=== PATIENT | male | born 1960 | race Caucasian/White ===

== ENCOUNTER 2018-05-24 08:48 | Inpatient (IN) ==
[2018-05-24] MEDS ORDERED: NARCAN IV ONE (09:27)
[2018-05-24 09:45] LABS: BASO# 0.02 X1000 (0.0-0.2); BASO% 0.3 % (0.0-0.8); EOS# 0.31 X1000 (0.0-0.7); EOS% 4.7 % (0.0-10.0); HEMATOCRIT 35.6 % (42.0-52.0); HEMOGLOBIN 10.5 g/dL (14.0-18.0); IMM GRAN# 0.02 X1000 (0.0-0.04); IMM GRAN% 0.3 % (0.0-0.5); LYMPH# 1.91 X1000 (1.2-3.4); LYMPH% 29.2 % (20.5-51.1); MCH 30.4 PG (27-31); MCHC 29.5 g/dL (33-37); MCV 103.2 FL (81-99); MONO# 0.76 X1000 (0.11-0.59); MONO% 11.6 % (1.7-9.3); MPV 11.5 FL (7.4-10.4); NEUT# 3.51 X1000 (1.4-6.5); NEUT% 53.9 % (42.2-75.2); PLT 126 X1000 (130-400); RBC 3.45 XMIL (4.7-6.1); RDW 14.9 % (11.5-14.5); WBC 6.53 X1000 (4.8-10.8)
--- NOTE | 2018-05-24 10:05 | Diag Imaging Result Doc PS360 ---
CHEST-1 VIEW - 05/24/2018 INDICATION: AMS COMPARISON: None FINDINGS: There is mild cardiomegaly and pulmonary vascular congestion. There is a pleural-based infiltrate in the left upper lobe. There is some linear atelectasis in the right lung base but no infiltrate on the right side. No pneumothorax or significant pleural effusion. IMPRESSION: Cardiomegaly and pulmonary vascular congestion. Right upper lobe focal infiltrate, indeterminate but suspicious for pneumonia. Electronically signed by Jose David Lombardo 05/24/2018 10:02 AM
[2018-05-24 10:18] LABS: ALB/GLOB RATIO 1.5; ALBUMIN 3.8 g/dL (3.5-5.0); CALCIUM 8.7 mg/dL (8.8-10.2); CREATININE 1.4 mg/dL (0.7-1.2); POTASSIUM 5.4 mmol/L (3.5-5.1); TOTAL BILIRUBIN 0.16 mg/dL (0.20-1.00); TOTAL PROTEIN 6.4 g/dL (6.3-8.3)
[2018-05-24 10:31] LABS: ALLEN TEST YES; BE 3.6 mmoll (-3.0-3.0); BLOOD TYPE ARTERIAL; HCO3-(ACT) 27.7 mmoll (20.0-26.0); METHB 0.2 % (0.0-1.5); O2(CT) 14.8 mL/dL (15.0-23.0); PCO2(98.6) 47 mmHg (35-45); PO2(98.6) 91 mmHg (60-100); SAMPLE BLOOD; SAO2 98.6 % (95.0-100.0); THB 10.8 g/dL (11.5-17.4)
--- NOTE | 2018-05-24 10:31 | Diag Imaging Result Doc PS360 ---
EXAM: CT HEAD W/O CONTRAST INDICATION: ams TECHNIQUE: This exam was performed using automated exposure control, adjustment of mA or kV according to patient size, and/or use of iterative reconstruction technique. COMPARISON: None. FINDINGS: There is no definite acute infarct given the limited sensitivity of CT versus MRI. There is no discrete intracranial mass, mass effect, or intracranial hemorrhage. There is a trace left mastoid air cell effusion. Surrounding soft tissues and bony structures are essentially unremarkable, otherwise. IMPRESSION: No evidence of acute intracranial pathology. Electronically signed by Aristides Pop 05/24/2018 10:29 AM
[2018-05-24 10:32] LABS: MODALITY CANNULA
--- NOTE | 2018-05-24 10:43 | EKG Report ---
Test Performed on : 05/24/2018 08:59:08 AM Test Reason : CP Blood Pressure : / mmHG Vent. Rate : 053 BPM Atrial Rate : 053 BPM P-R Int : 176 ms QRS Dur : 080 ms QT Int : 404 ms P-R-T Axes : 067 072 053 degrees QTc Int : 379 ms Sinus bradycardia. Low voltage QRS Borderline ECG No previous ECGs available Unconfirmed Result
[2018-05-24] MEDS ORDERED: ATIVAN IV ONE (10:50)
[2018-05-24] MEDS ORDERED: ZITHROMAX 500 MG/NS 500 MG/250 ML IVPB IV SCH (11:00)
[2018-05-24] MEDS ORDERED: LACTULOSE PO ONE (11:29)
[2018-05-24 11:45] LABS: URINE SOURCE CATH
[2018-05-24 11:54] LABS: BILIRUBIN URINE NEGATIVE (NEGATIVE); BLOOD URINE NEGATIVE (NEGATIVE); COLOR YELLOW; GLUCOSE URINE NEGATIVE (NEGATIVE); KETONE URINE NEGATIVE (NEGATIVE); LEUKOCYTES URINE NEGATIVE (NEGATIVE); NITRITE URINE NEGATIVE (NEGATIVE); PH URINE 6.5; PROTEIN URINE TRACE mg/dL (NEGATIVE); SP GRAVITY URINE 1.009; TURBIDITY URINE CLEAR (CLEAR); UR EPITHELIAL CELLS <10 /HPF (<10); URINE BACTERIA NEGATIVE /HPF; URINE RBC <10 /HPF (<10); URINE WBC <10 /HPF (<10); UROBILINOGEN URINE NORMAL (NORMAL)
[2018-05-24] MEDS ORDERED: MILK OF MAGNESIA PO PRN (12:51)
[2018-05-24] MEDS ORDERED: HEPARIN SUBQ SCH (12:51)
[2018-05-24] MEDS ORDERED: DULCOLAX PR PRN (12:51)
--- NOTE | 2018-05-24 12:59 | HISTORY AND PHYSICAL ---
PRIMARY CARE PROVIDER: Unknown. CHIEF COMPLAINT: Per [facility] records, altered mental status. HISTORY OF PRESENT ILLNESS: Mr. Mays is a 58-year-old male who is a bilateral lower extremity amputee, vancomycin-resistant enterococci, urinary tract infection, pressure rind to the left hip with MRSA, hypertension, congestive heart failure, COPD, renal failure, bipolar, exhibitionist, sexual masochism, phantom limb pain, diabetes mellitus type 2, hyperlipidemia, obesity, GERD, nicotine dependence, anxiety, and mild cognitive impairment. He is from [facility]. He does have an indwelling Marlow to help with the pressure wound heel to his left hip. Per [facility] reports, he was brought in for altered mental status. He was given Narcan and awakened and had to be given Ativan. Patient is now alert, oriented, and calm in the room. He does not remember any events leading up to him being brought to the hospital. He is complaining of some phantom pain. However, he appears comfortable at this time. He did have a head CT that did not show any evidence of acute intracranial pathology. Chest x-ray did reveal cardiomegaly, pulmonary vascular congestion and a right upper lobe focal infiltrate suspicious for pneumonia. He does not have a white count. His lactate is normal. He did have some mild hypernatremia and hyperkalemia and a BUN of 30 and a creatinine of 1.4. We will admit him to the medical telemetry floor. We will ask Wound Care to assess his right hip and will place him on Zyvox and Levaquin as the patient has an allergy to penicillin and sulfa. We will also contact Dr. Durga Young, as well as try to obtain his old records from I believe [facility]. REVIEW OF SYSTEMS: A 14-point review of systems completely negative except for those mentioned in history of present illness. The patient denies any headache, fever, chills, nausea, vomiting, diarrhea. He does report phantom leg pain. No chest pain. No palpitations. PAST MEDICAL HISTORY: 1. Vancomycin-resistant enterococci urinary tract infection. 2. Methicillin-resistant Staphylococcus aureus pressure wound to the left hip. 3. Bilateral below-knee amputation. 4. Hypertension. 5. Congestive heart failure. 6. Chronic obstructive pulmonary disease. 7. Renal failure. 8. Bipolar disorder. 9. Exhibitionism. 10. Sexual masochism. 11. Phantom limb pain. 12. Diabetes mellitus type 2. 13. Hyperlipidemia. 14. Obesity. 15. Gastroesophageal reflux disease. 16. Nicotine dependence. 17. Anxiety. 18. Mild cognitive impairment. PAST SURGICAL HISTORY: Bilateral below-knee amputation. SOCIAL HISTORY: He is currently staying at [facility]. He is from [place]. ALLERGIES: Penicillin and sulfa. HOME MEDICATIONS: 1. Divalproex sodium 500 mg tablets, 2 tablets p.o. at bedtime. 2. Melatonin 5 mg p.o. at bedtime. 3. Quetiapine fumarate 50 mg p.o. at bedtime. 4. Simvastatin 20 mg p.o. at bedtime. 5. Tylenol 325 mg 2 tablets p.o. q.4 hours p.r.n. 6. Ativan 1 mg p.o. q.4 hours p.r.n. agitation. 7. Baclofen 10 mg 2 tablets p.o. q.6 hours. 8. Bisacodyl 1 suppository RI daily. 9. Colace 1 tab p.o. daily. 10. Ipratropium-albuterol sulfate, 1 inch inhaled q.6 hours p.r.n. 11. Gabapentin 400 mg at lunchtime. 12. Gabapentin 800 mg 1 tab p.o. t.i.d. 13. Ibuprofen 400 mg p.o. q.6 hours p.r.n. 14. Zac 1 packet p.o. b.i.d. 15. Medroxyprogesterone 10 mg p.o. daily. 16. SD acid suspension 30 mL p.o. q.4 hours p.r.n. 17. Macrodantin 100 mg p.o. b.i.d. 18. OxyContin 1 tab p.o. b.i.d. 19. Oxycodone 10 mg p.o. q.6 hours p.r.n. 20. Multivitamin 1 tab p.o. daily. 21. Isosorbide calcium 500 mg p.o. b.i.d. 22. Zinc sulfate 220 mg p.o. b.i.d. 23. Zofran 1 tab p.o. q.6 hours p.r.n. PHYSICAL EXAMINATION: VITAL SIGNS: Temperature is 98 degrees, heart rate 74, respirations 16, blood pressure 170/97, O2 is 100% on room air. GENERAL: Mr. Mays is a 58-year-old male who is lying on his right side on the stretcher in the room, in no acute distress. HEENT: Atraumatic, normocephalic. PERRL. NECK: Supple trachea midline. CARDIOVASCULAR: S1, S2 appreciated. No murmurs, gallops, rubs noted. RESPIRATORY: Lung sounds clear. Chest excursion nonlabored breathing. GASTROINTESTINAL: Soft, nontender, nondistended. Positive bowel sounds 4 quadrants. EXTREMITIES: Bilateral BKA. SKIN: He does have a wound to his right hip. : He has an indwelling Marlow catheter draining clear urine with white sediment. His Marlow is being changed at this time. NEUROLOGIC: Patient is awake, alert, oriented than x4. He does follow commands, moves all extremities. He does not remember any events of the day except he woke up in the hospital for unknown reason. DIAGNOSTIC DATA: 1. Chest x-ray: Cardiomegaly, pulmonary vascular congestion, right upper lobe focal infiltrate suspicious for pneumonia. 2. EKG: Sinus bradycardia at 53 beats per minute. 3. Head CT: No evidence of acute intracranial pathology. LABORATORY DATA: White count 6, hemoglobin and hematocrit 10 and 35, platelet count is 126,000. PH 7.40, pCO2 47, PO2 91, bicarb 27, base excess 3.6, O2 saturations 96% on 2 L nasal cannula. Sodium 146, potassium 5.4, chloride 109, BUN 38, creatinine 1.4. Blood glucose is 100. Urinalysis is negative for bacteria, negative for nitrites. ASSESSMENT AND PLAN: 1. Hospital-acquired pneumonia. Patient is from [facility]. We will treat him initially was Zyvox and Levaquin. He does have an allergy to penicillin and sulfa. We will also consult Infectious Disease. 2. Altered mental status. The patient is on various sedating medications. We will hold those at this time. He did wake up after given Narcan, and had to be given a dose of Ativan to calm him down. He now appears to be calm and appropriate. Again, we will hold his medications. 3. Mild hyperkalemia. We will give him a dose of lactulose now and recheck his potassium. 4. Very mild hyponatremia. I will continue to monitor. 5. Vancomycin-resistant enterococci urinary tract infection with indwelling Marlow. We will consult Infectious Disease. 6. Pressure wound with methicillin-resistant Staphylococcus aureus to the right hip. Again, we will consult Infectious Disease. 7. Bilateral below-knee amputation. 8. Hypertension. 9. Congestive heart failure. 10. Chronic obstructive pulmonary disease. We will continue on bronchodilators. 11. Acute kidney injury on possible chronic kidney disease. We will continue to monitor. Consult Nephrology if necessary. 12. Multiple psychiatric issues, bipolar, exhibitionism, sexual masochism. Mild cognitive impairment and anxiety. We will continue home medications when appropriate. 13. Phantom limb pain. We will continue home medications when appropriate. 14. Diabetes mellitus type 2. We will continue fingerstick blood sugar and place him on sliding scale. 15. Hyperlipidemia. 16. Gastroesophageal reflux disease. 17. Nicotine dependence. We will continue nicotine patch. 18. We will try to obtain records from [facility]. 19. Further recommendation to follow physician evaluation, laboratory data and diagnostic data. Dictated by VERITO Maynard for Michael Bueno MD cc: Michael Bueno MD Patient seen and examined by me. I agree with the assessment and plan of the IN STORE DEMONSTRATOR. Dr. Myles DUMONT
[2018-05-24] MEDS ORDERED: LEVAQUIN 250 MG/D5W 250 MG/50 ML IVPB IV SCH (14:00)
--- NOTE | 2018-05-24 14:32 | PROVIDER DOCUMENTATION ---
This chart was entered by Kayy Manrique Scribe, acting as scribe for Joni Harvey CRNP. HPI-General Adult - General Chief Complaint: Altered Mental Status Stated Complaint: ams Time Seen by Provider: 05/24/18 09:26 Source: patient, family Allergies/Adverse Reactions: Patient Allergies Allergy/AdvReac Type Severity Reaction Status Date / Time Penicillins Allergy Unknown Verified 05/24/18 09:35 Sulfa (Sulfonamide Allergy Unknown Verified 05/24/18 09:35 Antibiotics) Home Medications: Home Medication List Medication Instructions Recorded Confirmed Last Taken Type Arginine/Glutamine/Calcium Hmb 1 packet PO BID 05/24/18 05/24/18 Unknown History [Zac Packet] Ascorbate Calcium [Vitamin C] 1 tab PO BID 05/24/18 05/24/18 Unknown History Baclofen 2 tab PO Q6H 05/24/18 05/24/18 Unknown History Bisacodyl [Biscolax] 1 supp MO DAILY PRN 05/24/18 05/24/18 Unknown History Bisacodyl [Dulcolax] 1 tab PO DAILY PRN 05/24/18 05/24/18 Unknown History Budesonide/Formoterol Fumarate 2 inh INH BID 05/24/18 05/24/18 Unknown History [Symbicort 80-4.5 Mcg Inhaler] Divalproex Sodium [Divalproex 2 tab PO QHS 05/24/18 05/24/18 Unknown History Sodium ER] Docusate Sodium [Colace] 1 tab PO DAILY 05/24/18 05/24/18 Unknown History Gabapentin 1 tab PO DAILY 05/24/18 05/24/18 Unknown History Gabapentin 1 tab PO TID 05/24/18 05/24/18 Unknown History Ibuprofen 1 tab PO Q6H PRN 05/24/18 05/24/18 Unknown History Magnesium Hydroxide [Milk of 30 ml PO DAILY PRN 05/24/18 05/24/18 Unknown History Magnesia] Medroxyprogesterone Acetate 1 tab PO DAILY 05/24/18 05/24/18 Unknown History Melatonin 1 tab PO QHS 05/24/18 05/24/18 Unknown History Multivitamin with Folic Acid 1 tab PO DAILY 05/24/18 05/24/18 Unknown History [Thera Tablet] Nicotine Patch [Nicoderm Patch] 1 patch TD DAILY 05/24/18 05/24/18 Unknown History Nitrofurantoin Monohyd/M-Cryst 1 tab PO BID 05/24/18 05/24/18 Unknown History [Nitrofurantoin Kings-Mcr 100 mg] Ondansetron HCl [Zofran] 1 tab PO Q6H PRN 05/24/18 05/24/18 Unknown History Oxycodone E.r. [Oxycontin] 1 tab PO BID 05/24/18 05/24/18 Unknown History Oxycodone/APAP 10 mg/325 mg 1 tab PO Q6H PRN 05/24/18 05/24/18 Unknown History [Percocet-10] Quetiapine Fumarate 1 tab PO Q6H PRN 05/24/18 05/24/18 Unknown History Quetiapine Fumarate 1 tab PO QHS 05/24/18 05/24/18 Unknown History Simvastatin 1 tab PO QHS 05/24/18 05/24/18 Unknown History Zinc Sulfate 1 tab PO BID 05/24/18 05/24/18 Unknown History - History of Present Illness -Gen Adult Nature of Presenting Problems: 58 yom presents to the ed via ems from [facility] with AMS and lethargic. pt sx was noted this am by staff and sent to ed. per ems when aos pt had fixed and dilated pupils and could be aroused by verbal stimuli but would quickly go back to sleep. pt had BGL 98 Location of Pain/Injury: reports: none Pain Radiation: reports: no radiation Quality of Pain: reports: none Severity: reports: moderate Onset/Duration: reports: this morning Timing: reports: still present Context/Activities at Onset: reports: sleep Modifying Factors: improves with: nothing Associated Symptoms: reports: fatigue. denies: back/neck pain, chest pain, diarrhea, fever/chills, nausea, shortness of breath, vomiting Similar Symptoms Previously?: No Recently seen or treated by another doctor?: No Review of Systems - Adult - REVIEW OF SYSTEMS - ADULT ROS:: limited per condition Constitutional: denies: chills, fever Eyes: reports: no symptoms reported Ears, Nose, Mouth & Throat: reports: no symptoms reported Cardiovascular: denies: chest pain, palpitations Respiratory: denies: cough, shortness of breath, wheezing Gastrointestinal: denies: abdominal pain, diarrhea, nausea, vomiting Genitourinary: reports: no symptoms reported Musculoskeletal: denies: back pain, neck pain Integumentary: reports: no symptoms reported Neurological: reports: see HPI, other (ams). denies: dizziness/vertigo, headache/migraines, loss of balance, numbness, paresthesia, slurred speech Psychiatric: reports: no symptoms reported Endocrine: reports: no symptoms reported Hematologic/Lymphatic: reports: no symptoms reported Allergic/Immunologic: reports: no symptoms reported All Other Systems: Reviewed and Negative Past History - Adult - PAST MEDICAL HISTORY-ADULT Review of Records: reports: Old Records Reviewed, Nursing Assessment Review, Medications Reviewed, Social history reviewed & non-contributory. Major Childhood Illnesses: reports: denies history Cardiovascular: reports: CAD, CHF, HTN, hyperlipidemia Respiratory: reports: COPD Gastrointestinal: reports: denies history Genitourinary: reports: kidney disease Musculoskeletal: reports: denies history Neurological: reports: denies history Psychiatric: reports: depression Endocrine/Immune: reports: Diabetes Diabetes Type: Type 2 Other Conditions: reports: MRSA - PRIOR SURGERIES/PROCEDURES Surgical/Procedure History: reports: reviewed, not pertinent - IMMUNIZATION STATUS Childhood Immunizations: See Nurse Assessment Flu Vaccine: See Nurse Assessment - FAMILY HISTORY Family History: reviewed, not pertinent - SOCIAL HISTORY Smoking: denies Alcohol Use Frequency: never Living Situation: care facility Physical Exam-General - PHYSICAL EXAM-ADULT Initial Vital Signs Reviewed: Yes - CONSTITUTIONAL General Appearance: no apparent distress, obese, lethargic - EYES Eyes: PERRL/EOMI, other (sluggisgh) - HEAD, EARS, NOSE, MOUTH & THROAT HENMT: normocephalic/atraumatic, moist mucous membranes - NECK Neck: full range of motion, supple, normal inspection - RESPIRATORY Respiratory: chest non-tender, no pleuratic chest pain, no respiratory distress, decreased breath sounds, rhonchi, increased rate (24). negative: crackles, rales - CARDIOVASCULAR Cardiovascular: normal peripheral pulses, bradycardia (53) - GASTROINTESTINAL (ABDOMEN) Abdominal Exam: normal bowel sounds, non tender, soft - LYMPHATIC Lymphatic: no adenopathy - MUSCULOSKELETAL Back Exam: normal inspection, no CVA tenderness Extremity: other (BBKA). negative: normal gait - SKIN Integumentary: normal color, normal turgor, warm/dry - PSYCHIATRIC Psych/Mental Status: disoriented x 3 Progress - PLAN OF CARE/RESULTS Progress/Plan/Lab Results: Vital Signs - 8 hr 05/24/18 08:53 05/24/18 08:54 05/24/18 09:00 Temperature Pulse Rate 63 61 54 L Respiratory Rate 21 29 H 15 Blood Pressure 152/98 O2 Sat by Pulse Oximetry 94 L 91 L 99 05/24/18 09:09 05/24/18 09:10 05/24/18 09:20 Temperature 98 F Pulse Rate 48 L 56 L 49 L Respiratory Rate 10 L 17 12 Blood Pressure 152/98 O2 Sat by Pulse Oximetry 93 L 99 97 05/24/18 09:30 05/24/18 10:05 05/24/18 10:10 Temperature Pulse Rate 49 L 63 79 Respiratory Rate Blood Pressure O2 Sat by Pulse Oximetry 99 96 05/24/18 10:20 05/24/18 10:24 Temperature Pulse Rate 75 74 Respiratory Rate 16 Blood Pressure 170/97 O2 Sat by Pulse Oximetry 98 100 Laboratory Results - last 24 hr 05/24/18 05/24/18 05/24/18 09:03 09:07 09:07 WBC 6.53 RBC 3.45 L Hgb 10.5 L Hct 35.6 L MCV 103.2 H MCH 30.4 MCHC 29.5 L RDW Std Deviation 14.9 H Plt Count 126 L MPV 11.5 H Immature Gran % (Auto) 0.3 Neut % (Auto) 53.9 Lymph % (Auto) 29.2 Kings % (Auto) 11.6 H Eos % (Auto) 4.7 Baso % (Auto) 0.3 Immature Gran # (Auto) 0.02 Neut # (Auto) 3.51 Lymph # (Auto) 1.91 Kings # (Auto) 0.76 H Eos # (Auto) 0.31 Baso # (Auto) 0.02 Specimen Type Sample Site pH pCO2 pO2 HCO3 Base Excess Oxyhemoglobin ABG O2 Sat (Calculated) ABG O2 Saturation ABG Carboxyhemoglobin ABG Methemoglobin David Test A-a O2 Difference Total Hemoglobin Lactate Liter Flow Blood Gas Modality FiO2 % Sodium 146 H Potassium 5.4 H Chloride 109 H Carbon Dioxide 27 Anion Gap 10 BUN 38 H Creatinine 1.4 H Estimated GFR/1.73 m2 52 BUN/Creatinine Ratio 27 Glucose 100 POC Glucose 92 Calculated Osmolality 300 Calcium 8.7 L Total Bilirubin 0.16 L AST 13 ALT 8 L Alkaline Phosphatase 71 Creatine Kinase 68 Troponin T Total Protein 6.4 Albumin 3.8 Globulin 2.6 Albumin/Globulin Ratio 1.5 05/24/18 05/24/18 09:07 10:25 WBC RBC Hgb Hct MCV MCH MCHC RDW Std Deviation Plt Count MPV Immature Gran % (Auto) Neut % (Auto) Lymph % (Auto) Kings % (Auto) Eos % (Auto) Baso % (Auto) Immature Gran # (Auto) Neut # (Auto) Lymph # (Auto) Kings # (Auto) Eos # (Auto) Baso # (Auto) Specimen Type ARTERIAL Sample Site R RADIAL pH 7.40 pCO2 47 H pO2 91 HCO3 27.7 H Base Excess 3.6 H Oxyhemoglobin 97.0 ABG O2 Sat (Calculated) 14.8 L ABG O2 Saturation 98.6 ABG Carboxyhemoglobin 1.30 ABG Methemoglobin 0.2 David Test YES A-a O2 Difference 50.0 Total Hemoglobin 10.8 L Lactate 0.90 Liter Flow 2.0 Blood Gas Modality CANNULA FiO2 % 28.0 Sodium Potassium Chloride Carbon Dioxide Anion Gap BUN Creatinine Estimated GFR/1.73 m2 BUN/Creatinine Ratio Glucose POC Glucose Calculated Osmolality Calcium Total Bilirubin AST ALT Alkaline Phosphatase Creatine Kinase Troponin T 0.025 Total Protein Albumin Globulin Albumin/Globulin Ratio Orders Category Date Time Status FSBS [Finger Stick Blood Sugar (ED)] DIRECTED Care 05/24/18 09:25 Active IV Insertion ORDERED Care 05/24/18 09:25 Completed CHEST-1 VIEW [RAD] Stat Exams 05/24/18 09:[address] HEAD W/O CONTRAST [CT] Stat Exams 05/24/18 09:27 Completed Blood Gas [ABG] [RESP] Routine Lab 05/24/18 10:25 Completed CBC WITH ELECTRONIC DIFF [HEME] Stat Lab 05/24/18 09:07 Completed CK PROFILE [SP CHEM] Stat Lab 05/24/18 09:07 Completed COMPREHENSIVE METABOLIC PANEL [CHEM] Stat Lab 05/24/18 09:07 Completed TROPONIN T Stat Lab 05/24/18 09:07 Completed URINALYSIS W/POSS RFLX CULT [URINALYSIS] Stat Lab 05/24/18 09:23 Uncollected Naloxone [Narcan] Med 05/24/18 09:27 Discontinued 0.4 mg IV NOW ONE EKG [EKG] Stat Ther 05/24/18 09:25 Draft pt improved with Narcan ED, but complaining of leg pain. Given Ativan due to agitation. PNA noted on CXR, consulted Thao DRUM TESTER who agreed to admit the pt to Dr. Bueno. Result Diagrams: 05/24/18 09:07 05/24/18 09:07 - EKG 1 Time of EKG reading by physician:: 08:59 EKG Read and Signed by:: Erick Tijerina EKG Interpretation (*Must complete 3 of following elements*): Normal (bor derline) Rate: 53 Rhythm: sinus bradycardia Maxwell: normal QRS: other (low voltage qrs) MO Interval: normal ST Wave: normal - XRAY 1 XRAY: Bilateral XRAY Study: Chest Impression: See EMR Report (CHEST-1 VIEW - 05/24/2018 INDICATION: AMS COMPAR NINA: None FINDINGS: There is mild cardiomegaly and pulmonary vascular congestion. There is a pleural-based infiltrate in the left upper lobe. There is some linear atelectasis in the right lung base but no infiltrate on the right side. No pneumothorax or significant pleural effusion. IMPRESSION: Cardiomegaly and pulmonary vascular congestion. Right upper lobe focal infiltrate, indeterminate but suspicious for pneumonia. Electronically signed by Jose David Lombardo 05/24/2018 10:02 AM 05/24/18 1002 Interpreting Physician: Jose David Lombardo MD Dictated Date/Time: 05/24/18 1000 cc: Joni Harvey; Duane Pacheco MD) - CT/MRI 1 CT Study: Head Impression: See EMR Report (EXAM: CT HEAD W/O CONTRAST INDICATION: ams TECHNIQUE: This exam was performed using automated exposure control, adjustment of mA or kV according to patient size, and/or use of iterative reconstruction technique. COMPARISON: None. FINDINGS: There is no definite acute infarct given the limited sensitivity of CT versus MRI. There is no discrete intracranial mass, mass effect, or intracranial hemorrhage. There is a trace left mastoid air cell effusion. Surrounding soft tissues and bony structures are essentially unremarkable, otherwise. IMPRESSION: No evidence of acute intracranial pathology. Electronically signed by Aristides Pop 05/24/2018 10:29 AM 05/24/18 1029 Interpreting Physician: Aristides Pop MD Dictated Date/Time: 05/24/18 1026 cc: Joni Harvey; Duane Pacheco MD) - CONSULTS/PCP/HOSPITALIST Notification #1 *Consult/PCP/Hospitalist*: hospitalist Time Discussed: 10:51 Consult Disposition: Admit Departure - Departure Date of Disposition Decision: 05/24/18 Time of Disposition Decision: 10:57 DIAGNOSIS: PNA (pneumonia) Disposition: ADMITTED INPATIENT 09 Certified Medical Emergency: Emergent Condition: Stable Referrals and Follow-Ups: Duane Pacheco MD [Primary Care Provider] - - Critical Care Note This patient required my direct & personal management of CC.: No Attestation - Physician/ MARIBELL Attestation Patient care was provided by Advanced Practice Provider:: Yes Advanced Practice Provider documentation review:: The Mid-level provider documentation, treatment plan and medical decision making was reviewed by the physician who agrees with all treatment and medical decision making by the MLP. The physician spent face to face time with patient:: No Advanced Practice Provider documentation review:: Supervising physician onsite and consulted in the evaluation and care of this patient. The physician did not have a face to face encounter with the patient. This chart was documented by the indicated scribe, (Kayy Manrique Scribe) and accurately reflects the services I performed and decisions made by me, Joni Harvey CRNP, as attested by the provider's signature.
[2018-05-24] MEDS ORDERED: ZYVOX 600 MG/D5W 600 MG/300 ML IVPB IV SCH ×2 (15:00→18:00)
[2018-05-24] MEDS: SANTYL OINT TOP SCH (16:21)
[2018-05-24] MEDS: MAXIPIME 2 GM in NS 100 ML IV SCH ×2 (18:16→18:17)
[2018-05-24] MEDS ORDERED: NS 500 ML ONE (18:16)
[2018-05-24] MEDS: NORCO-10 PO PRN ×2 (18:53→22:16)
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
[2018-05-24] MEDS ORDERED: NON-FORMULARY MED (Arginine/Glutamine/Calcium Hmb [Juven Packet] 1 PACKET) PO SCH (21:00)
[2018-05-24] MEDS ORDERED: MACROBID PO SCH (21:00)
[2018-05-24] MEDS ORDERED: ZOCOR PO SCH (21:00)
[2018-05-24] MEDS: ZINC SULFATE PO SCH (22:08)
[2018-05-24] MEDS: VITAMIN C PO SCH (22:09)
[2018-05-24] MEDS: DEPAKOTE ER PO SCH (22:10)
[2018-05-24] MEDS: ZOCOR PO SCH (22:10)
[2018-05-24] MEDS: NEURONTIN PO SCH (23:29)
[2018-05-24] MEDS: SYMBICORT 80/4.5 MICROGM INHALER INH SCH (23:39)
[2018-05-25] MEDS: NORCO-10 PO PRN ×4 (02:12→13:00)
[2018-05-25] MEDS: MAXIPIME 2 GM in NS 100 ML IV SCH ×2 (04:28→17:01)
[2018-05-25] MEDS: ZYVOX PO SCH ×3 (05:34→21:26)
[2018-05-25 07:05] LABS: BASO# 0.02 X1000 (0.0-0.2); BASO% 0.3 % (0.0-0.8); EOS# 0.28 X1000 (0.0-0.7); EOS% 4.8 % (0.0-10.0); HEMATOCRIT 32.2 % (42.0-52.0); HEMOGLOBIN 9.7 g/dL (14.0-18.0); IMM GRAN# 0.03 X1000 (0.0-0.04); IMM GRAN% 0.5 % (0.0-0.5); LYMPH# 1.81 X1000 (1.2-3.4); LYMPH% 31.2 % (20.5-51.1); MCH 30.5 PG (27-31); MCHC 30.1 g/dL (33-37); MCV 101.3 FL (81-99); MONO# 0.58 X1000 (0.11-0.59); MPV 11.1 FL (7.4-10.4); NEUT# 3.09 X1000 (1.4-6.5); NEUT% 53.2 % (42.2-75.2); PLT 125 X1000 (130-400); RBC 3.18 XMIL (4.7-6.1); RDW 14.9 % (11.5-14.5); WBC 5.81 X1000 (4.8-10.8)
[2018-05-25 07:14] LABS: AGAP 10; ALB/GLOB RATIO 1.3; ALBUMIN 3.6 g/dL (3.5-5.0); ALKALINE PHOSPHATASE 62 U/L (32-122); BUN 30 mg/dL (8-22); CALCIUM 8.7 mg/dL (8.8-10.2); CHLORIDE 106 mmol/L (98-107); COSMO 291; ESTIMATED GFR > 60; GLUCOSE 103 mg/dL (70-104); GOT 13 U/L (10-34); GPT 8 U/L (10-44); POTASSIUM 4.6 mmol/L (3.5-5.1); SODIUM 143 mmol/L (136-145); TCO2 27 mmol/L (25-35); TOTAL BILIRUBIN 0.19 mg/dL (0.20-1.00); TOTAL PROTEIN 6.3 g/dL (6.3-8.3)
--- NOTE | 2018-05-25 07:49 | Diag Imaging Result Doc PS360 ---
EXAM: CHEST-PORTABLE INDICATION: Pneumonia TECHNIQUE: One view COMPARISON: 05/24/2018 FINDINGS: Pulmonary venous congestion is essentially stable. Peripheral infiltrate in the left upper lung zone is stable. There is a small nodular density in the right midlung zone that is nonspecific. It was probably present on the previous study as well but is less apparent due to overexposure. Cardiac silhouette is stable. IMPRESSION: Essentially stable chest. Electronically signed by Aristides Pop 05/25/2018 7:46 AM
[2018-05-25] MEDS: SYMBICORT 80/4.5 MICROGM INHALER INH SCH ×2 (08:06→19:25)
[2018-05-25] MEDS: PROVERA PO SCH (09:16)
[2018-05-25] MEDS: NEURONTIN PO SCH ×4 (09:17→21:00)
[2018-05-25] MEDS: SANTYL OINT TOP SCH (09:17)
[2018-05-25] MEDS: VITAMIN C PO SCH ×2 (09:17→21:25)
[2018-05-25] MEDS: NICODERM PATCH TD SCH (09:17)
[2018-05-25] MEDS: COLACE PO SCH (09:17)
[2018-05-25] MEDS: ZINC SULFATE PO SCH ×2 (09:17→21:25)
[2018-05-25] MEDS: THERA M PLUS PO SCH (09:17)
[2018-05-25 13:04] LABS: URINE SOURCE CATH
[2018-05-25 13:16] LABS: BILIRUBIN URINE NEGATIVE (NEGATIVE); BLOOD URINE NEGATIVE (NEGATIVE); COLOR YELLOW; GLUCOSE URINE NEGATIVE (NEGATIVE); KETONE URINE NEGATIVE (NEGATIVE); LEUKOCYTES URINE NEGATIVE (NEGATIVE); NITRITE URINE NEGATIVE (NEGATIVE); PROTEIN URINE TRACE mg/dL (NEGATIVE); SP GRAVITY URINE 1.012; TURBIDITY URINE CLEAR (CLEAR); UROBILINOGEN URINE NORMAL (NORMAL)
[2018-05-25 13:17] LABS: UR EPITHELIAL CELLS <10 /HPF (<10); URINE BACTERIA NEGATIVE /HPF; URINE RBC <10 /HPF (<10); URINE WBC <10 /HPF (<10)
--- NOTE | 2018-05-25 15:07 | INFECTIOUS DISEASE PROGRESS NO ---
DATE: 05/25/2018 PRESENT ILLNESS: Mr. Mays is a intermediate patient who has come in due to altered mental status, which seems to be improving. He has a left hip wound infection, which has previously grown methicillin-resistant Staph aureus, and a possible left upper lobe pneumonia. There is also a history of vancomycin-resistant Enterococcus in his urine. MEDICATIONS: He is receiving Zyvox 600 mg p.o. every 12 hours, and cefepime 2 grams IV every 12 hours. PHYSICAL EXAMINATION: Vital Signs: Temperature is 98.1 degrees, pulse rate 63, respiratory rate 20, blood pressure 157/69, O2 saturation is 100% on 2 L nasal cannula. General: This is a chronically ill-appearing, obese, middle-aged male. He is lying in bed, currently in mild distress due to complaints of pain. HEENT: Atraumatic, normocephalic. Oral mucous membranes are pink and moist. Conjunctivae are pale. Neck: Supple. Trachea is midline. Cardiovascular: Heart rate is regular. Respiratory: Lung sounds are clear to auscultation and diminished bilaterally. Abdomen: Soft, obese, and tender to the midepigastric area on palpation. Integumentary: He has previously had bvepe-nnk-iins amputations bilaterally. The wound to his left hip has erythematous tissue with some yellow drainage noted. Neurologic: He is awake, alert, and fixated on his pain at this time. He is able to move side to side with some assistance. IMAGING AND LABORATORY DATA: Today, his white count is 5.81, hemoglobin 9.7, platelet count 125,000. Creatinine is 1. Estimated GFR is greater than 60. Total bilirubin is 0.19, AST 13, ALT 8, alkaline phosphatase 62. There is a urine culture pending, and a left hip culture which has no growth on the preliminary report. Chest x-ray done this morning shows peripheral infiltrates in the left upper lung zone, which are stable. ASSESSMENT AND PLAN: Mr. Mays has a left hip infection as well as a possible pneumonia. At this point, cultures are pending. He has a methicillin-resistant staphylococcus aureus and vancomycin-resistant enterococci history. For now, we will continue his Zyvox and cefepime as ordered. These plans have been discussed with and recommended by Dr. Young. COMORBIDITIES: Comorbidities for Mr. Mays include that he is an obese, intermediate patient with history of methicillin-resistant staphylococcus aureus and vancomycin- resistant enterococci, bilateral smmou-rzv-dani amputations, congestive heart failure, chronic obstructive pulmonary disease, diabetes mellitus, gastroesophageal reflux disease, cigarette smoking, anxiety, and some cognitive impairment. Dictated by VERITO Heard for Durga Young MD This chart was documented by, VERITO Heard and accurately reflects the services performed, treatment plan and medical decisions as attested by the providers signature Durga Young MD. cc: Durga Young MD [facility]AN[facility]
--- NOTE | 2018-05-25 15:15 | PROGRESS NOTE ---
DATE: 05/25/2018 SUBJECTIVE: Patient resting in bed. OBJECTIVE: Temperature 98.1 degrees, pulse is 80, respirations 20, blood pressure 157/69, O2 is 100%. HEENT: Atraumatic, normocephalic. Cardiovascular: S1, S2. Respiratory system: Has evidence of good air entry bilaterally. Abdomen: Soft, nontender. No masses felt. Extremities: Bilateral below-knee amputation. Central nervous system: No obvious focal deficits. LABS: WBC is 5.1, hematocrit is 32.2 with a platelet count of 125,000. Sodium 143, potassium 4.6, chloride 106, bicarb 27, BUN is 30, creatinine 1.0. X-ray of the chest shows pulmonary vascular congestion with peripheral infiltrate in the left upper lung zone. There is a small nodular density in the right midlung zone which is nonspecific. ASSESSMENT AND PLAN: 1. Hospital-acquired pneumonia/vancomycin-resistant Enterococcus UTI/infected right hip wound. Antibiotic management deferred to the Infectious Disease team. 2. Altered mental status. The patient's mental status seemed to have improved. Continue to monitor his neurologic status. 3. Bilateral below-knee amputation. Aware. 4. Hypertension. Optimize blood pressure control. 5. Congestive heart failure. Stable. 6. Chronic obstructive pulmonary disease. Stable. Maintain nebulized bronchodilators as needed. 7. Acute kidney injury. Resolved. 8. Diabetes mellitus. Monitor blood sugar levels and maintain patient on sliding scale insulin. 9. Gastroesophageal reflux disease. Maintain patient on PPI. 10. Tobacco use history. Maintain patient on nicotine patch. cc: Michael Bueno MD
[2018-05-25] MEDS: PROTONIX IV SCH (15:17)
[2018-05-25] MEDS: DUONEB (A & A) INH SCH ×3 (15:21→22:59)
--- NOTE | 2018-05-25 20:12 | GENERAL SURGERY CONSULTATION ---
DATE: 05/25/2018 HISTORY OF PRESENT ILLNESS: This is a 58-year-old gentleman with multiple medical issues, including cardiac disease, pulmonary disease, psychiatric issues, bilateral lower extremity amputations. He is in a detention, has been recently admitted. He has presented with altered mental status and was found to have a wound on his left hip, most likely decubitus in nature. Unclear of the etiology. REVIEW OF SYSTEMS: Ten point negative. MEDICAL HISTORY: Multidrug resistant urinary tract infections, decubitus wound left hip, peripheral vascular disease, hypertension, congestive heart failure, COPD, bipolar disorder, exhibitionism, sexual masochism, phantom limb pain, diabetes type 2, hyperlipidemia, obesity, gastroesophageal reflux. Nicotine dependence. Anxiety and continued impairment. SURGICAL HISTORY: Bilateral below-knee amputation. SOCIAL HISTORY: History of smoking. Lives at [facility] [*]. MEDICATIONS: The medication list is extensive. I do not see any anticoagulants listed. PHYSICAL EXAMINATION: Vital Signs: Temp is 98.1, pulse 60 blood pressure 140/68, oxygen saturation is 100%. General: A chronically ill-appearing gentleman, somewhat agitated. HEENT: No scleral icterus. No cervical mass. Cardiovascular: Normal rate. Pulmonary: No increased work of breathing. Abdomen: Soft, nontender, nondistended. Integument: Warm and dry. Psychiatric: Somewhat of an agitated affect. Neurologic: No focal deficits other than generalized weakness. Musculoskeletal: Bilateral below-knee amputations. He has a left hip wound that is at least 10 cm x 10 cm, but is clean, granulating, very superficial. No necrosis. No infection. Lymphatic: No inguinal adenopathy. LABORATORY: White count is 5, hematocrit 32, platelets 125,000. Creatinine is 1.0, glucose is 103 to 104. Bilirubin, AST, ALT are normal. Urinalysis trace protein. ASSESSMENT AND PLAN: A 58-year-old gentleman with clean wound in his left hip, appears to be granulating well. We will continue local wound care and follow along. Santyl is being applied currently. We will recommend continuing this. Further medical management per the hospitalist. He will need nutritional support and offloading. cc: Jeffery Khan MD
[2018-05-25] MEDS: ZOCOR PO SCH (21:25)
[2018-05-25] MEDS: DEPAKOTE ER PO SCH (21:26)
[2018-05-26] MEDS: NORCO-10 PO PRN ×4 (00:59→17:26)
[2018-05-26] MEDS: NEURONTIN PO SCH ×5 (02:35→21:03)
[2018-05-26] MEDS: DUONEB (A & A) INH SCH ×6 (03:07→22:54)
[2018-05-26] MEDS: MAXIPIME 2 GM in NS 100 ML IV SCH ×2 (04:43→17:02)
[2018-05-26] MEDS: SYMBICORT 80/4.5 MICROGM INHALER INH SCH ×2 (07:30→19:09)
[2018-05-26] MEDS: NICODERM PATCH TD SCH (08:17)
[2018-05-26] MEDS: COLACE PO SCH (08:17)
[2018-05-26] MEDS: VITAMIN C PO SCH ×2 (08:17→21:03)
[2018-05-26] MEDS: ZYVOX PO SCH ×2 (08:18→21:03)
[2018-05-26] MEDS: THERA M PLUS PO SCH (08:18)
[2018-05-26] MEDS: ZINC SULFATE PO SCH ×2 (08:18→21:03)
[2018-05-26] MEDS: PROVERA PO SCH (08:18)
[2018-05-26] MEDS: NORVASC PO SCH (08:18)
[2018-05-26] MEDS: SANTYL OINT TOP SCH (11:13)
--- NOTE | 2018-05-26 13:38 | PROGRESS NOTE ---
DATE: 05/26/2018 SUBJECTIVE: The patient resting comfortably in bed. OBJECTIVE: Vital Signs: Temperature 98.1 degrees, pulse 81, respiratory rate 22, blood pressure is 133/95, and oxygen saturation is 100%. HEENT: Atraumatic and normocephalic. Cardiovascular: S1, S2. Respiratory: Evidence of good air entry bilaterally. Abdomen: Soft, nontender. No masses felt. Extremities: Bilateral below-knee amputation. Central nervous system: No obvious focal deficits noted. LABORATORY: Blood sugar is 138. ASSESSMENT AND PLAN: 1. Hospital-acquired pneumonia/vancomycin-resistant enterococcus UTI/infected right hip wound. Antibiotic management by the Infectious Disease team. 2. Altered mental status. Improved. I will continue to monitor patient's neurologic status. 3. Bilateral below-knee amputation. Aware. 4. Hypertension. Optimize blood pressure control. 5. Congestive heart failure. Stable. Use diuretics if needed. 6. Chronic obstructive pulmonary disease. Stable. Nebulized bronchodilators as needed. 7. Acute kidney injury. Resolved. 8. Diabetes mellitus. Continue blood sugar. Monitor as well as sliding scale insulin. 9. Gastroesophageal reflux disease. Continue proton pump inhibitor. 10. Tobacco use history. Maintain patient on nicotine patch. cc: Michael Bueno MD
[2018-05-26] MEDS: PROTONIX IV SCH (15:20)
--- NOTE | 2018-05-26 17:03 | GENERAL SURGERY PROGRESS NOTE ---
DATE: 05/26/2018 SUBJECTIVE: Dressing changes going well. No fevers. No tachycardia. OBJECTIVE: General: He is alert. Cardiovascular: Normal rate. Pulmonary: No increased work of breathing. Left hip is dressed well. LABORATORY: No new labs at this point other than a glucose of 138. ASSESSMENT AND PLAN: Left hip decubitus wound. Will continue Santyl dressing changes daily. He may ultimately benefit from a skin graft to allow him to recover from his other medical issues. cc: Jeffery Khan MD
--- NOTE | 2018-05-26 17:36 | INFECTIOUS DISEASE PROGRESS NO ---
DATE: 05/26/2018 PRESENT ILLNESS: The patient has a left hip wound which by history had grown methicillin- resistant Staphylococcus aureus. The patient also had a history of vancomycin-resistant enterococcal urinary tract infection. On the patient's chest x-ray on admission to the hospital, there is a possibility that he has a left upper lobe pneumonia. MEDICATIONS: Currently, the patient is receiving Zyvox and cefepime. PHYSICAL EXAMINATION: Vital Signs: Temperature is 98 degrees, pulse 82, respirations 22, blood pressure 133/95. General: This is a chronically ill-appearing obese middle-aged male. He is in no acute distress. Head, eyes, ears, nose, and throat: He can hear my spoken words and see near objects. He does not have any white patches on his tongue. Neck: No meningismus. Lungs: Clear to auscultation. Cardiovascular: Heart rate is regular. Abdomen: Soft and nontender. Extremities: The patient has bilateral lower yqzlz-vxg-wyay amputations. The patient has a wound on the left hip area. It is has beefy red tissue in it, and there is no surrounding erythema. Neurologic: The patient is awake. He can move his extremities. There is no tremor. LABORATORY DATA: There is no lab today. There is no radiographic study done today. The patient's hip and urine cultures are negative thus far. ASSESSMENT AND PLAN: 1. The patient has pneumonia. 2. He by history has a left hip infection and urinary tract infection. For now, I will continue with Zyvox and cefepime. PATIENT'S COMORBIDITIES: 1. Patient is obese. 2. He has peripheral vascular disease. 3. Congestive heart failure. 4. He also smokes cigarettes. 5. He also has chronic obstructive pulmonary disease. 6. Renal insufficiency. cc: Durga Young MD
[2018-05-26] MEDS: ZOCOR PO SCH (21:02)
[2018-05-26] MEDS: DEPAKOTE ER PO SCH (21:03)
[2018-05-27] MEDS: NEURONTIN PO SCH ×4 (03:43→21:01)
[2018-05-27] MEDS: MAXIPIME 2 GM in NS 100 ML IV SCH ×2 (06:46→16:54)
[2018-05-27] MEDS: THERA M PLUS PO SCH (08:27)
[2018-05-27] MEDS: PROVERA PO SCH (08:28)
[2018-05-27] MEDS: ZYVOX PO SCH ×2 (08:28→21:02)
[2018-05-27] MEDS: ZINC SULFATE PO SCH ×2 (08:28→21:02)
[2018-05-27] MEDS: NORCO-10 PO PRN ×4 (08:28→21:02)
[2018-05-27] MEDS: NORVASC PO SCH (08:29)
[2018-05-27] MEDS: NICODERM PATCH TD SCH (08:31)
[2018-05-27] MEDS: COLACE PO SCH (08:31)
[2018-05-27] MEDS: DUONEB (A & A) INH SCH ×5 (08:36→23:36)
[2018-05-27] MEDS: SYMBICORT 80/4.5 MICROGM INHALER INH SCH ×2 (08:39→19:37)
[2018-05-27] MEDS: SANTYL OINT TOP SCH (09:45)
--- NOTE | 2018-05-27 11:51 | INFECTIOUS DISEASE PROGRESS NO ---
DATE: 05/27/2018 PRESENT ILLNESS: Mr. Mays is being treated for left upper lobe pneumonia. He also has a wound on his left hip which by history has previously grown methicillin-resistant Staph aureus. He also has a history of vancomycin-resistant Enterococcus in his urine. Both urine and hip cultures have been clear on this admission. MEDICATIONS: He is receiving oral Zyvox 600 mg every 12 hours and cefepime 2 g IV every 12 hours. PHYSICAL EXAMINATION: Vital Signs: Temperature is 98.3 degrees, pulse rate 71, respiratory rate 18, blood pressure 126/75. O2 saturation is 95% on 2 L nasal cannula. General: This is a chronically ill-appearing, middle-aged male. He is lying in the bed currently in mild distress due to bilateral lower extremity phantom pain. HEENT: Atraumatic, normocephalic. Oral mucous membranes are pink and moist. Conjunctivae are pale. Neck: Supple. Trachea is midline. Cardiovascular: Heart rate is regular. Respiratory: Lung sounds are clear to auscultation. Abdomen: Soft, obese, and tender on palpation. Extremities: He has a history of bilateral below- the-knee amputations. There is a wound to his left hip with beefy red tissue that seems to be getting smaller. No surrounding erythema. Neurologic: He is awake alert, and conversing appropriately. Able to move all his extremities with some assistance. No tremors noted. LABORATORY AND X-RAY: None available today. ASSESSMENT AND PLAN: Mr. Mays has been admitted and is being treated for a left upper lobe pneumonia as seen on chest x-ray. He does have a history of vancomycin-resistant Enterococcus in his urine and methicillin-resistant Staph aureus in his hip wound. The hip wound seems to be getting a little smaller. His cultures have been negative on this admission. At this point, we will continue him on the Zyvox and cefepime as ordered and recheck a chest x-ray on Wednesday. The patient is complaining of bilateral phantom pain with burning, which he states is normal for him. These plans have been discussed with and recommended by Dr. Young. COMORBIDITIES: Comorbidities for Mr. Mays include that he is morbidly obese with peripheral vascular disease, congestive heart failure, cigarette smoking, COPD, and multiple psychiatric disorders. Dictated by VERITO Heard for Durga Young MD This chart was documented by, VERITO Heard and accurately reflects the services performed, treatment plan and medical decisions as attested by the providers signature Durga Young MD. cc: Durga Young MD
[2018-05-27] MEDS: VITAMIN C PO SCH ×2 (12:34→21:03)
[2018-05-27] MEDS: PROTONIX IV SCH (15:18)
[2018-05-27] MEDS: SODIUM CHLORIDE 0.9% INJ SCH (15:18)
--- NOTE | 2018-05-27 15:31 | PROGRESS NOTE ---
DATE: 05/27/2018 SUBJECTIVE: The patient is resting in bed. OBJECTIVE: Vital signs: Temperature 98.6 degrees, pulse 70, respirations 20, blood pressure 132/73, oxygen saturation is 98%. HEENT: Atraumatic, normocephalic. Cardiovascular: S1, S2. Respiratory system: Has evidence of good air entry bilaterally. Abdomen: Soft, nontender. No masses felt. Extremities: Has bilateral below-knee amputation. Central nervous system: No obvious focal deficit noted. LABORATORY DATA: Blood sugar is 101. ASSESSMENT AND PLAN: 1. Hospital-acquired pneumonia/vancomycin-resistant enterococcus. Urinary tract infection/infected right hip wound. Antibiotic management per the Infectious Disease team. 2. Altered mental status. Resolved. 3. Bilateral below-knee amputation. Aware. 4. Hypertension. Optimize blood pressure control. 5. Congestive heart failure. Stable. Use diuretics as needed. 6. Chronic obstructive pulmonary disease, stable. Use nebulized bronchodilators as needed. 7. Acute kidney injury. Resolved. 8. Diabetes mellitus. Continue blood sugar medications as well as sliding scale insulin. 9. Gastroesophageal reflux disease. Continue proton pump inhibitor. 10. History of bipolar disorder. Continue appropriate psych medications. cc: Michael Bueno MD
[2018-05-27] MEDS: SEROQUEL PO PRN (16:54)
[2018-05-27] MEDS: ATIVAN PO PRN (21:01)
[2018-05-27] MEDS: DEPAKOTE ER PO SCH (21:01)
[2018-05-27] MEDS: MELATONIN PO SCH (21:02)
[2018-05-27] MEDS: ZOCOR PO SCH (21:02)
[2018-05-28] MEDS: SEROQUEL PO PRN ×3 (01:49→20:22)
[2018-05-28] MEDS: NORCO-10 PO PRN ×6 (02:05→22:53)
[2018-05-28] MEDS: NEURONTIN PO SCH ×4 (02:05→20:22)
[2018-05-28] MEDS: DUONEB (A & A) INH SCH ×7 (03:15→22:52)
[2018-05-28 06:15] LABS: BASO# 0.03 X1000 (0.0-0.2); BASO% 0.6 % (0.0-0.8); EOS% 5.8 % (0.0-10.0); HEMATOCRIT 33.7 % (42.0-52.0); HEMOGLOBIN 10.3 g/dL (14.0-18.0); LYMPH# 2.05 X1000 (1.2-3.4); LYMPH% 39.7 % (20.5-51.1); MCH 30.5 PG (27-31); MCHC 30.6 g/dL (33-37); MCV 99.7 FL (81-99); MONO# 0.63 X1000 (0.11-0.59); MONO% 12.2 % (1.7-9.3); MPV 10.6 FL (7.4-10.4); NEUT# 2.16 X1000 (1.4-6.5); NEUT% 41.7 % (42.2-75.2); PLT 109 X1000 (130-400); RBC 3.38 XMIL (4.7-6.1); RDW 15.3 % (11.5-14.5); WBC 5.17 X1000 (4.8-10.8)
[2018-05-28 06:47] LABS: CALCIUM 8.6 mg/dL (8.8-10.2); CREATININE 1.4 mg/dL (0.7-1.2); POTASSIUM 4.5 mmol/L (3.5-5.1)
--- NOTE | 2018-05-28 07:41 | Diag Imaging Result Doc PS360 ---
CHEST-1 VIEW - 05/28/2018 INDICATION: pneumonia COMPARISON: 05/25/2018 FINDINGS: Stable scarring at the left lateral chest wall. No definite nodules or infiltrates visible on the right side. Heart size and pulmonary vascularity are top normal. There is some linear scarring in the right lung base. IMPRESSION: No new abnormalities. Electronically signed by Jose David Lombardo 05/28/2018 7:39 AM
[2018-05-28] MEDS ORDERED: NS 1,000 ML IV SCH (08:30)
[2018-05-28] MEDS: MAXIPIME 2 GM in NS 100 ML IV SCH ×2 (09:46→20:22)
[2018-05-28] MEDS: VITAMIN C PO SCH ×2 (09:47→20:22)
[2018-05-28] MEDS: ZYVOX PO SCH ×2 (09:47→20:22)
[2018-05-28] MEDS: THERA M PLUS PO SCH (09:47)
[2018-05-28] MEDS: ZINC SULFATE PO SCH ×2 (09:47→20:22)
[2018-05-28] MEDS: NICODERM PATCH TD SCH (09:47)
[2018-05-28] MEDS: COLACE PO SCH (09:47)
[2018-05-28] MEDS: PROVERA PO SCH (09:47)
[2018-05-28] MEDS: SANTYL OINT TOP SCH (09:58)
[2018-05-28] MEDS: SYMBICORT 80/4.5 MICROGM INHALER INH SCH ×2 (11:24→20:00)
[2018-05-28] MEDS ORDERED: NS 250 ML IV ONE (12:02)
--- NOTE | 2018-05-28 12:22 | PROGRESS NOTE ---
DATE: 05/28/2018 SUBJECTIVE: Patient has no new complaints. He seems somnolent this morning. He is falling asleep in between questions. When he awakens, he asks for pain medication. He then immediately falls back asleep. OBJECTIVE: Vital Signs: Temperature 98, pulse 59, respiratory 20, blood pressure 87/54 currently to 105/64. General: Patient is somnolent but easily arousable. HEENT: Normocephalic. Neck: Supple. Cardiovascular: Regular rate. Chest: Clear. Abdomen: Soft. Extremities: He has revfk-afi-ymcp amputation bilaterally. Neurologic: Patient is oriented, appears to have no focal changes. ASSESSMENT: 1. Hospital-acquired pneumonia. 2. Urinary tract infection. 3. Infected hip. 4. Hypotension. Currently is on Norvasc. We will hold this and add IV fluids. 5. Altered mental status by history, appears to be resolved. He appears alert and oriented. 6. Bilateral iylkt-oxb-hmuj amputation. 7. Congestive heart failure, stable. 8. Acute on chronic renal failure. 9. Chronic obstructive pulmonary disease. 10. History of bipolar. PLAN: We will continue Zyvox and cefepime. We will stop his Norvasc and IV fluids. Discussed with patient that at the current time with blood pressures 87 systolic, we certainly could not add any type of sedative or pain medication that could potentially lower his blood pressure. Unsure how much true pain Mr. Mays is in currently as he has to awakened so that he can ask for pain medication. We will continue current plan. Hopefully discharge over the next 2 or 3 days. cc: Juan Davis MD
[2018-05-28] MEDS: SODIUM CHLORIDE 0.9% INJ SCH (14:49)
[2018-05-28] MEDS: PROTONIX IV SCH (14:49)
[2018-05-28] MEDS: TYLENOL PO PRN (16:29)
[2018-05-28] MEDS: ZOCOR PO SCH (20:22)
[2018-05-28] MEDS: MELATONIN PO SCH (20:22)
[2018-05-28] MEDS: DEPAKOTE ER PO SCH (20:22)
[2018-05-28] MEDS: ATIVAN PO PRN (20:22)
[2018-05-29] MEDS: NEURONTIN PO SCH ×5 (03:04→22:50)
[2018-05-29] MEDS: NORCO-10 PO PRN ×3 (03:04→11:04)
[2018-05-29] MEDS: DUONEB (A & A) INH SCH ×6 (03:25→23:37)
[2018-05-29] MEDS: SYMBICORT 80/4.5 MICROGM INHALER INH SCH ×2 (08:02→19:44)
[2018-05-29] MEDS: COLACE PO SCH (08:31)
[2018-05-29] MEDS: VITAMIN C PO SCH ×2 (08:31→20:31)
[2018-05-29] MEDS: PROVERA PO SCH (08:31)
[2018-05-29] MEDS: NICODERM PATCH TD SCH (08:31)
[2018-05-29] MEDS: ZYVOX PO SCH ×2 (08:31→20:31)
[2018-05-29] MEDS: ZINC SULFATE PO SCH ×2 (08:31→20:31)
[2018-05-29] MEDS: ATIVAN PO PRN ×2 (08:31→20:31)
[2018-05-29] MEDS: THERA M PLUS PO SCH (08:31)
[2018-05-29] MEDS: SANTYL OINT TOP SCH (08:32)
[2018-05-29] MEDS: MAXIPIME 2 GM in NS 100 ML IV SCH ×3 (11:04→20:30)
--- NOTE | 2018-05-29 14:42 | PROGRESS NOTE ---
DATE: 05/29/2018 SUBJECTIVE: Patient is resting in bed. OBJECTIVE: Vital Signs: Temperature 97.8 degrees, pulse 56, respirations 20, blood pressure 93/55. HEENT: Atraumatic, normocephalic. Cardiovascular System: S1, S2. Respiratory System: Has evidence of good entry bilaterally. Abdomen: Soft, nontender. No masses felt. Extremities: Has bilateral below-knee amputation. Central Nervous System: No obvious focal deficits noted. Labs: Sugar is 101. ASSESSMENT AND PLAN: 1. Hospital-acquired pneumonia/vancomycin-resistant enterococcus urinary tract infection/right hip wound infection. Antibiotic management per infectious disease team. 2. Altered mental status. Resolved. 3. Bilateral below-knee amputation. Aware. 4. Hypertension. Blood pressure on the low side at about 93/55. [facility] is currently on hold. Continue to monitor the patient's blood pressure. 5. Congestive heart failure. Stable. Use diuretics as needed. 6. Chronic obstructive pulmonary disease. Stable. Use bronchodilators as needed. 7. Acute kidney injury. Resolved. 8. Diabetes mellitus. Continue blood sugar monitoring as well as sliding scale insulin. 9. Gastroesophageal reflux disease. Continue proton pump inhibitor. 10. History of bipolar disorder. Continue psychiatric medications. 11. Disposition. The patient will be going to a [facility] facility when ready for discharge. cc: Michael Bueno MD
[2018-05-29] MEDS: OXY IR PO PRN ×3 (14:54→22:47)
[2018-05-29] MEDS: PROTONIX IV SCH (14:55)
[2018-05-29] MEDS: MELATONIN PO SCH (20:31)
[2018-05-29] MEDS: SEROQUEL PO PRN (20:31)
[2018-05-29] MEDS: ZOCOR PO SCH (20:31)
[2018-05-29] MEDS: DEPAKOTE ER PO SCH (20:33)
[2018-05-30] MEDS: NEURONTIN PO SCH ×6 (02:31→23:20)
[2018-05-30] MEDS: OXY IR PO PRN ×5 (02:31→22:05)
[2018-05-30] MEDS: DUONEB (A & A) INH SCH ×6 (03:32→23:58)
[2018-05-30] MEDS: SYMBICORT 80/4.5 MICROGM INHALER INH SCH ×2 (07:24→20:21)
[2018-05-30] MEDS: NORVASC PO SCH (08:05)
[2018-05-30] MEDS: MAXIPIME 2 GM in NS 100 ML IV SCH (08:07)
[2018-05-30] MEDS: PROVERA PO SCH (08:20)
[2018-05-30] MEDS: ZINC SULFATE PO SCH ×2 (08:20→20:21)
[2018-05-30] MEDS: THERA M PLUS PO SCH (08:20)
[2018-05-30] MEDS: VITAMIN C PO SCH ×2 (08:20→20:22)
[2018-05-30] MEDS: ZYVOX PO SCH (08:21)
[2018-05-30] MEDS: NICODERM PATCH TD SCH (08:21)
[2018-05-30] MEDS: COLACE PO SCH (08:21)
[2018-05-30] MEDS ORDERED: NS 1,000 ML IV SCH (12:15)
[2018-05-30] MEDS: ATIVAN PO PRN ×2 (12:24→22:05)
--- NOTE | 2018-05-30 12:30 | PROGRESS NOTE ---
DATE: 05/30/2018 SUBJECTIVE: The patient is resting in bed. OBJECTIVE: Vital Signs: Temperature 98.6 degrees, pulse 50, respirations 19, blood pressure is 99/53, oxygen saturation is 100%. HEENT: Atraumatic and normocephalic. Cardiovascular System: S1 and S2. Respiratory System: Has evidence of good air entry bilaterally. Abdomen: Soft, nontender. No masses felt. Extremities: The patient does have bilateral below-knee amputations. Central Nervous System: No obvious focal deficit noted. Labs: None. ASSESSMENT AND PLAN: 1. Hospital-acquired pneumonia/vancomycin-resistant enterococcus urinary tract infection/right hip wound infection. Antibiotic management per the infectious disease team. 2. Altered mental status. Resolved. 3. Bilateral below-knee amputations. Aware. 4. Hypertension. Blood pressure on the low side. We will continue to hold off on the antihypertensive medications. 5. Congestive heart failure. Stable. Use diuretics as needed. 6. Chronic obstructive pulmonary disease. Stable. Use bronchodilators as needed. 7. Acute kidney injury. Maintain the patient on intravenous fluids. Follow up on renal function. 8. Diabetes mellitus. Continue blood sugar monitoring as well as sliding scale insulin. 9. Gastroesophageal reflux disease. Continue proton pump inhibitor. 10. History of bipolar disorder. Continue appropriate psychiatric medications. 11. Disposition. The patient will be discharge to a [facility] facility when considered appropriate by the infectious disease team. cc: Michael Bueno MD
[2018-05-30] MEDS: SANTYL OINT TOP SCH (14:20)
[2018-05-30] MEDS: NS 1,000 ML IV SCH (15:20)
[2018-05-30] MEDS: PROTONIX IV SCH (15:22)
--- NOTE | 2018-05-30 18:06 | INFECTIOUS DISEASE PROGRESS NO ---
DATE: 05/30/2018 PRESENT ILLNESS: The patient is being treated for pneumonia. On his latest x-ray, there is no mention of any infiltrates, and it seems that the pneumonia is clearing. The patient also has a left hip infection which is clearing, and the hip is doing quite well. The patient previously had a urinary tract infection, but the latest urine culture as well as the culture from the patient's left hip are negative. MEDICATIONS: The patient currently is on Zyvox and cefepime. PHYSICAL EXAMINATION: Vital Signs: Temperature is 98.9 degrees, pulse 67, respirations 18, blood pressure 105/66. General: This is a chronically ill-appearing, middle-aged male. He is in no acute distress. Head, Eyes, Ears, Nose, and Throat: He can hear my spoken words and see near objects. He does not have any drainage from his nose or ears. Lungs: Clear to auscultation. Cardiovascular: Heart rate is regular. Thorax: The patient has an increased AP diameter of the chest. Abdomen: Soft and nontender. Extremities: I removed the dressing from the patient's left hip and the beefy red tissue is getting smaller in size and granulation tissue is forming. I replaced the patient's dressing on his left hip. Neurologic: The patient is alert. He can move his arms and legs. There is no tremor. LAB AND X-RAY: There is no new lab today. Chest x-ray, as mentioned above, does not mention any infiltrate. ASSESSMENT AND PLAN: It looks like his pneumonia is clearing and his left hip infection is cleared and getting smaller. My plan is to send the patient home to [facility] on Doxycycline 100 mg p.o. every 12 hours and Ceftin 500 mg p.o. every 12 hours for 1 more week. The patient's further care will be taken care of by the [facility] physician who sees the patients at [facility]. COMORBIDITIES: The patient is obese. He has peripheral vascular disease. He has bilateral below- knee amputations. He is a cigarette smoker. He has COPD and multiple psychiatric disorders. cc: Durga Young MD
[2018-05-30] MEDS: CEFTIN PO SCH (18:45)
[2018-05-30] MEDS: TYLENOL PO PRN (18:45)
[2018-05-30] MEDS: MELATONIN PO SCH (20:21)
[2018-05-30] MEDS: DEPAKOTE ER PO SCH (20:22)
[2018-05-30] MEDS: ZOCOR PO SCH (20:22)
[2018-05-30] MEDS: DOXYCYCLINE PO SCH (20:22)
[2018-05-31] MEDS: TYLENOL PO PRN (00:14)
[2018-05-31] MEDS: NEURONTIN PO SCH ×5 (00:14→17:51)
[2018-05-31] MEDS: OXY IR PO PRN ×4 (03:29→18:05)
[2018-05-31] MEDS: SEROQUEL PO PRN (03:32)
[2018-05-31] MEDS: DUONEB (A & A) INH SCH ×3 (03:54→11:06)
[2018-05-31] MEDS: CEFTIN PO SCH ×2 (06:06→18:05)
[2018-05-31 06:48] LABS: BASO# 0.02 X1000 (0.0-0.2); BASO% 0.3 % (0.0-0.8); EOS# 0.93 X1000 (0.0-0.7); EOS% 13.3 % (0.0-10.0); HEMATOCRIT 33.4 % (42.0-52.0); HEMOGLOBIN 10.4 g/dL (14.0-18.0); LYMPH# 2.34 X1000 (1.2-3.4); LYMPH% 33.4 % (20.5-51.1); MCH 30.8 PG (27-31); MCHC 31.1 g/dL (33-37); MCV 98.8 FL (81-99); MONO# 0.58 X1000 (0.11-0.59); MONO% 8.3 % (1.7-9.3); MPV 11.1 FL (7.4-10.4); NEUT# 3.14 X1000 (1.4-6.5); NEUT% 44.7 % (42.2-75.2); PLT 101 X1000 (130-400); RBC 3.38 XMIL (4.7-6.1); RDW 14.9 % (11.5-14.5); WBC 7.01 X1000 (4.8-10.8)
--- NOTE | 2018-05-31 07:31 | Diag Imaging Result Doc PS360 ---
EXAM: CHEST-1 VIEW INDICATION: pneumonia TECHNIQUE: One view COMPARISON: 05/28/2018 FINDINGS: Fibrosis at the left midlung zone is stable. No new consolidation is identified. Cardiac silhouette is prominent but stable. IMPRESSION: Stable chest. Electronically signed by Aristides Pop 05/31/2018 7:29 AM
[2018-05-31 07:39] LABS: AGAP 13; BUN 34 mg/dL (8-22); CALCIUM 8.8 mg/dL (8.8-10.2); CHLORIDE 105 mmol/L (98-107); COSMO 288; CREATININE 1.1 mg/dL (0.7-1.2); ESTIMATED GFR > 60; GLUCOSE 80 mg/dL (70-104); POTASSIUM 4.6 mmol/L (3.5-5.1); SODIUM 141 mmol/L (136-145); TCO2 23 mmol/L (25-35)
[2018-05-31] MEDS: THERA M PLUS PO SCH (08:18)
[2018-05-31] MEDS: ZINC SULFATE PO SCH (08:18)
[2018-05-31] MEDS: NICODERM PATCH TD SCH (08:18)
[2018-05-31] MEDS: DOXYCYCLINE PO SCH (08:18)
[2018-05-31] MEDS: COLACE PO SCH (08:18)
[2018-05-31] MEDS: NORVASC PO SCH (08:19)
[2018-05-31] MEDS: VITAMIN C PO SCH (08:19)
[2018-05-31] MEDS: SANTYL OINT TOP SCH (08:24)
[2018-05-31] MEDS: ATIVAN PO PRN (10:00)
[2018-05-31] MEDS: PROVERA PO SCH (10:00)
[2018-05-31] MEDS: SYMBICORT 80/4.5 MICROGM INHALER INH SCH (11:07)
[2018-05-31] MEDS: NS 1,000 ML IV SCH (13:32)
--- NOTE | 2018-05-31 14:32 | DISCHARGE SUMMARY ---
ADMISSION DATE: 05/24/2018 DISCHARGE DATE: 05/31/2018 PRINCIPAL DIAGNOSIS: Hospital-acquired pneumonia. SECONDARY DIAGNOSES: 1. Vancomycin resistant Enterococcus urinary tract infection right hip wound infection. 2. Bilateral below-knee amputation. 3. Hypertension. 4. Congestive heart failure. 5. Chronic obstructive pulmonary disease. 6. Renal insufficiency. 7. Bipolar disorder. 8. Exhibitionism. 9. Sexual masochism 10. Phantom limb pain. 11. Type 2 diabetes mellitus. 12. Hyperlipidemia. 13. Obesity. 14. Gastroesophageal reflux disease. 15. Nicotine dependence. 16. Anxiety disorder. 17. Mild cognitive impairment. DISCHARGE MEDICATIONS: Include the followin. Cefuroxime 500 mg p.o. twice a day as directed. 2. Doxycycline 100 mg p.o. twice a day as directed. 3. Ascorbic acid 500 mg p.o. twice a day. 4. Baclofen 2 tabs every 6 hours. 5. Bisacodyl 1 tab daily as needed. 6. Symbicort 2 puffs twice a day. 7. Valproic acid 1000 mg 2 tabs at bedtime. 8. Neurontin 400 mg 1 tab daily. 9. Neurontin 1 tab 3 times a day. 10. Medroxyprogesterone acetate 10 mg p.o. daily. 11. Melatonin 5 mg p.o. at bedtime. 12. Multivitamin 1 p.o. daily. 13. Nicotine patch 1 daily. 14. Simvastatin 20 mg p.o. daily. 15. Zinc sulfate 220 mg p.o. twice a day. 16. Ibuprofen one every 6 hours as needed. 17. Magnesium hydroxide 30 mL daily as needed. 18. Percocet 10 every 6 hours as needed. 19. Seroquel 1 tab every 6 hours as needed. 20. Acetaminophen two tabs every 4 hours as needed. 21. Lorazepam 1 mg every 4 hours as needed. 22. Zac 1 packet twice a day. 23. Colace 1 tab daily. 24. Bisacodyl 1 suppository rectally daily p.r.n. as needed. 25. Zofran 1 tab every 6 hours as needed. 26. DuoNeb one inhalation every 6 hours as needed. CONSULTATIONS DONE DURING THIS HOSPITAL STAY: 1. Dr. Durga Young infectious disease. 2. Dr. Jeffery Khan MD General Surgery. PROCEDURES DONE DURING THIS HOSPITAL STAY: Head CT 05/24/2018. HOSPITAL COURSE: Mr. Alberto Mays is a 58-year-old male who has bilateral lower extremity amputation as well as vancomycin resistant enterococcus UTI, infected right hip wound, hypertension, CHF, COPD, renal failure and bipolar disorder, exhibitionism, sexual masochism, phantom limb pain, diabetes mellitus, hyperlipidemia, obesity, gastroesophageal reflux disease, nicotine dependence, anxiety and mild cognitive impairment. The patient is from [facility]. He does have an indwelling Marlow catheter. The patient was brought to the hospital because of altered mental status. He was given Narcan which improved his mental status. X-ray of the chest showed cardiomegaly with pulmonary vascular congestion, and also right upper lobe focal infiltrates suspicious for pneumonia. He was diagnosed as having a possible hospital acquired pneumonia, and he was managed accordingly. The patient was seen by the Infectious Disease team and did manage his antibiotics while in the hospital. Mental status did improve during the hospitalization. Prior to discharge, he was transitioned from IV antibiotics to oral antibiotics. At this time, the patient has done well. He is stable and will be discharged back to rehab facility where will continue to recuperate. Diet to be 1800 ADA. Activity will be as tolerated. He needs PT and OT evaluation. He is expected to get discharge medications as noted above. Follow-up includes the following Dr. Duane Pacheco, primary care physician, Dr. Durga Young, Infectious Disease as well as Dr. Ismael Khan General Surgery who saw him for the right hip wound. cc: Michael Bueno MD
[2018-05-31 16:40] VITALS: BP 110/70
[2018-05-31] MEDS: PROTONIX IV SCH (17:47)
== END 2018-05-31 18:56 | DRG 698 ==
LOC: SUPCPDRO → ED 08:48 → EDIPHOLD 12:16 → SUATTDRO 12:16 → 3N 13:39
PROVIDERS: ATTEND Internal Medicine
CPT/HCPCS: 51702; 70450; 71010; 71045; 80048; 80053; 81001; 82550; 82805; 82948; 84132; 84484; 85025; 87070; 87088; 93005; 94640; 94761; 94799; 96365; 96375; 99285; A9270; C9113; J0456; J0692; J1956; J2020; J2060; J2310; J7040; S0164; XXXXX

== ENCOUNTER 2018-06-23 13:41 | Inpatient (IN) ==
--- NOTE | 2018-06-23 15:33 | EKG Report ---
Test Performed on : 06/23/2018 3:23:38 PM Test Reason : CP Blood Pressure : / mmHG Vent. Rate : 053 BPM Atrial Rate : 053 BPM P-R Int : 164 ms QRS Dur : 080 ms QT Int : 416 ms P-R-T Axes : 060 061 033 degrees QTc Int : 390 ms Sinus bradycardia. Otherwise normal ECG When compared with ECG of 24-MAY-2018 08:59, (Unconfirmed) No significant change was found Unconfirmed Result
[2018-06-23] MEDS ORDERED: NS 1,000 ML IV ONE ×2 (15:35→19:23)
[2018-06-23 15:50] LABS: BASO# 0.02 X1000 (0.0-0.2); BASO% 0.2 % (0.0-0.8); EOS# 0.33 X1000 (0.0-0.7); EOS% 3.3 % (0.0-10.0); HEMATOCRIT 35.4 % (42.0-52.0); HEMOGLOBIN 10.8 g/dL (14.0-18.0); IMM GRAN# 0.02 X1000 (0.0-0.04); IMM GRAN% 0.2 % (0.0-0.5); LYMPH# 1.75 X1000 (1.2-3.4); LYMPH% 17.7 % (20.5-51.1); MCH 30.8 PG (27-31); MCHC 30.5 g/dL (33-37); MCV 100.9 FL (81-99); MONO# 0.68 X1000 (0.11-0.59); MONO% 6.9 % (1.7-9.3); MPV 11.7 FL (7.4-10.4); NEUT# 7.11 X1000 (1.4-6.5); NEUT% 71.7 % (42.2-75.2); PLT 99 X1000 (130-400); RBC 3.51 XMIL (4.7-6.1); RDW 15.1 % (11.5-14.5); WBC 9.91 X1000 (4.8-10.8)
[2018-06-23 16:23] LABS: AGAP 10; ALB/GLOB RATIO 1.7; ALBUMIN 3.8 g/dL (3.5-5.0); ALKALINE PHOSPHATASE 67 U/L (32-122); BUN 28 mg/dL (8-22); CALCIUM 8.5 mg/dL (8.8-10.2); CHLORIDE 108 mmol/L (98-107); COSMO 299; CREATININE 1.1 mg/dL (0.7-1.2); ESTIMATED GFR > 60; GLUCOSE 80 mg/dL (70-104); GOT 14 U/L (10-34); GPT 10 U/L (10-44); POTASSIUM 5.1 mmol/L (3.5-5.1); SODIUM 148 mmol/L (136-145); TCO2 30 mmol/L (25-35); TOTAL BILIRUBIN 0.36 mg/dL (0.20-1.00); TOTAL PROTEIN 6.1 g/dL (6.3-8.3)
[2018-06-23] MEDS ORDERED: TORADOL IV ONE (16:37)
[2018-06-24] MEDS ORDERED: PERCOCET-10 PO ONE (01:19)
[2018-06-24 03:00] LABS: UR AMPHETAMINES QUAL NONE DETECTED (NONE DETECT); UR BARBITUATES QUAL NONE DETECTED (NONE DETECT); UR BENZODIAZEPIN QUAL NONE DETECTED (NONE DETECT); UR CANNABINOIDS QUAL NONE DETECTED (NONE DETECT); UR COCAINE QUAL NONE DETECTED (NONE DETECT); UR METHADONE QUAL NONE DETECTED (NONE DETECT); UR OPIATES QUAL NONE DETECTED (NONE DETECT); UR OXYCODONE QUAL PRESUMPTIVE POSITIVE (NONE DETECT); UR PCP QUAL NONE DETECTED (NONE DETECT)
[2018-06-24] MEDS ORDERED: PERCOCET-5 ONE ×2 (08:12→17:10)
[2018-06-24] MEDS ORDERED: PERCOCET-5 PO ONE ×2 (08:15→17:08)
[2018-06-24] MEDS ORDERED: NEURONTIN PO ONE ×2 (08:16→18:16)
[2018-06-24] MEDS ORDERED: LIORESAL PO ONE ×2 (08:16→18:16)
--- NOTE | 2018-06-24 10:03 | Diag Imaging Result Doc PS360 ---
EXAM: CHEST-PORTABLE 06/23/2018 HISTORY: AMS TECHNIQUE: AP portable at 0642 COMMENT: There is volume loss in the left hemithorax which was also the case on 05/31/2018. The inspiration is actually slightly less optimal on the current study. There are fibrotic appearing opacities in the left upper lobe. Overall there has been no significant change in the appearance of the chest. 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 Electronically signed by Edwin Zaman 06/24/2018 10:01 AM
[2018-06-25] MEDS ORDERED: PERCOCET-5 PO ONE ×2 (05:13→16:41)
[2018-06-25] MEDS ORDERED: NEURONTIN PO ONE ×3 (06:04→13:27)
[2018-06-25] MEDS ORDERED: LIORESAL PO ONE (06:17)
[2018-06-25] MEDS ORDERED: PERCOCET-10 PO ONE (09:56)
[2018-06-25] MEDS ORDERED: CYMBALTA PO ONE (13:27)
[2018-06-25] MEDS ORDERED: DEPAKOTE PO ONE (13:27)
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
[2018-06-25] MEDS ORDERED: ZOFRAN PO PRN (20:55)
[2018-06-25] MEDS ORDERED: PERCOCET-5 PO PRN (20:56)
[2018-06-25] MEDS: DEPAKOTE PO SCH (21:09)
[2018-06-25] MEDS: CYMBALTA PO SCH (21:10)
[2018-06-25] MEDS: NEURONTIN PO SCH (21:10)
[2018-06-25] MEDS: ZOCOR PO SCH (21:40)
[2018-06-25] MEDS: MELATONIN PO PRN (21:45)
--- NOTE | 2018-06-26 00:24 | PROVIDER DOCUMENTATION ---
This chart was entered by Geneva Quezada Scribe, acting as scribe for Sandeep Vergara MD. HPI-General Adult <Errol PerezRadha - Last Filed: 06/25/18 09:59> - General Source: patient - History of Present Illness -Gen Adult Nature of Presenting Problems: Patient is a 58 year old male who presents to the ED via EMS for low blood pressure. EMS reports patient was being transported to [facility] for psych care and while en route his systolic blood pressure dropped to 70S . EMS reports patient received pain medication prior to transport which knock him out. Location of Pain/Injury: reports: none Pain Radiation: reports: no radiation Quality of Pain: reports: none Severity: reports: mild Onset/Duration: reports: other (prior to arrival) Timing: reports: still present Context/Activities at Onset: reports: light activity Modifying Factors: improves with: nothing Associated Symptoms: reports: denies symptoms Similar Symptoms Previously?: No Recently seen or treated by another doctor?: Yes <Sandeep Gongora - Last Filed: 06/26/18 00:23> - General Chief Complaint: B/P Problems Stated Complaint: hypotensive Time Seen by Provider: 06/23/18 13:59 Allergies/Adverse Reactions: Patient Allergies Allergy/AdvReac Type Severity Reaction Status Date / Time Penicillins Allergy Unknown Verified 05/24/18 09:35 Sulfa (Sulfonamide Allergy Unknown Verified 05/24/18 09:35 Antibiotics) Home Medications: Home Medication List Medication Instructions Recorded Confirmed Last Taken Type Acetaminophen 2 tab PO Q4H PRN 05/24/18 06/25/18 Unknown History Albuterol 2.5MG/Ipratrop 0.5MG 1 inh INH Q6H PRN 05/24/18 06/25/18 Unknown History [Duoneb (A & A)] Baclofen 20 mg PO 4XDAY 05/24/18 06/25/18 Unknown History Bisacodyl [Biscolax] 1 supp MO DAILY PRN 05/24/18 06/25/18 Unknown History Divalproex Sodium [Divalproex 1,000 mg PO QHS 05/24/18 06/25/18 Unknown History Sodium ER] Docusate Sodium [Colace] 1 tab PO DAILY 05/24/18 06/25/18 Unknown History Gabapentin 1 tab PO TID 05/24/18 06/25/18 Unknown History Gabapentin 1 tab PO WLUNCH 05/24/18 06/25/18 Unknown History Ibuprofen 1 tab PO Q6H PRN 05/24/18 06/25/18 Unknown History Lorazepam [Ativan] 0.5 mg PO Q4H PRN 05/24/18 06/25/18 Unknown History Mag Hydrox/Al Hydrox/Simeth [Mi 30 ml PO Q4H PRN 05/24/18 06/25/18 Unknown History Acid Suspension] Magnesium Hydroxide [Milk of 30 ml PO DAILY PRN 05/24/18 06/25/18 Unknown History Magnesia] Medroxyprogesterone Acetate 1 tab PO DAILY 05/24/18 06/25/18 Unknown History Melatonin 1 tab PO QHS 05/24/18 06/25/18 Unknown History Ondansetron HCl [Zofran] 1 tab PO Q6H PRN 05/24/18 06/25/18 Unknown History Quetiapine Fumarate 1 tab PO Q6H PRN 05/24/18 06/25/18 Unknown History Simvastatin 1 tab PO QHS 05/24/18 06/25/18 Unknown History Zinc Sulfate 1 tab PO BID 05/24/18 06/25/18 Unknown History Arginine/Glutamine/Calcium Hmb 1 packet BID 06/25/18 06/25/18 Unknown History [Zac Packet] Ascorbic Acid [Vitamin C] 500 mg PO BID 06/25/18 06/25/18 Unknown History Budesonide/Formoterol Fumarate 2 puff INHALATION BID 06/25/18 06/25/18 Unknown History [Symbicort 80-4.5 Mcg Inhaler] Cyanocobalamin (Vitamin B-12) 1,000 mcg PO BID 06/25/18 06/25/18 Unknown History [Vitamin B12] Divalproex [Depakote] 250 mg PO QAM 06/25/18 06/25/18 Unknown History Duloxetine HCl 20 mg PO QHS 06/25/18 06/25/18 Unknown History Ipratropium/Albuterol Sulfate 1 vial INHALATION Q6H 06/25/18 06/25/18 Unknown History [Iprat-Albut 0.5-3(2.5) mg/3 ml] Miconazole Nitrate [Wilmar 1 applicatn TOP BID 06/25/18 06/25/18 Unknown History Antifungal] Multivitamin with Folic Acid 1 tab PO DAILY 06/25/18 06/25/18 Unknown History [Thera Tablet] Oxycodone/APAP 5 mg/325 mg 1 tab PO Q4H PRN 06/25/18 06/25/18 Unknown History [Percocet-5] Protein Hydrolysate,Milk [Liquid 30 ml PO BID 06/25/18 06/25/18 Unknown History Protein Fortifier] Review of Systems - Adult - REVIEW OF SYSTEMS - ADULT Constitutional: reports: no symptoms reported. denies: chills, fever, fatique Eyes: reports: no symptoms reported Ears, Nose, Mouth & Throat: reports: no symptoms reported Cardiovascular: reports: no symptoms reported. denies: chest pain, heart murmur, irregular heart rate Respiratory: reports: no symptoms reported Gastrointestinal: reports: no symptoms reported. denies: diarrhea, nausea, vomiting Genitourinary: reports: no symptoms reported Musculoskeletal: reports: no symptoms reported Integumentary: reports: no symptoms reported Neurological: reports: no symptoms reported Psychiatric: reports: no symptoms reported Endocrine: reports: no symptoms reported Hematologic/Lymphatic: reports: no symptoms reported Allergic/Immunologic: reports: no symptoms reported All Other Systems: Reviewed and Negative <Sandeep Gongora - Last Filed: 06/26/18 00:23> Past History - Adult - PAST MEDICAL HISTORY-ADULT Review of Records: reports: Nursing Assessment Review, Medications Reviewed, Social history reviewed & non-contributory. Major Childhood Illnesses: reports: denies history Cardiovascular: reports: CAD, CHF, HTN, hyperlipidemia Respiratory: reports: COPD Gastrointestinal: reports: denies history Obstetrical/Gynecological: reports: denies history Genitourinary: reports: kidney disease Musculoskeletal: reports: denies history Neurological: reports: denies history Psychiatric: reports: depression Endocrine/Immune: reports: Diabetes Other Conditions: reports: MRSA - PRIOR SURGERIES/PROCEDURES Surgical/Procedure History: reports: reviewed, not pertinent - IMMUNIZATION STATUS Childhood Immunizations: See Nurse Assessment Flu Vaccine: See Nurse Assessment - FAMILY HISTORY Family History: reviewed, not pertinent - SOCIAL HISTORY Smoking: cigarettes (former) Substance Use: denies Living Situation: family <Sandeep Gongora - Last Filed: 06/26/18 00:23> Physical Exam-General - PHYSICAL EXAM-ADULT Initial Vital Signs Reviewed: Yes - CONSTITUTIONAL General Appearance: alert, no apparent distress, other (drowsy, upon wake up become agitated, cursing and refuse to answer questions.). negative: lethargic, slow to respond - RESPIRATORY Respiratory: chest non-tender, lungs clear, normal breath sounds. negative: crackles, rhonchi - CARDIOVASCULAR Cardiovascular: normal peripheral pulses, regular rate, rhythm. negative: tachycardia, systolic murmur - GASTROINTESTINAL (ABDOMEN) Abdominal Exam: normal bowel sounds, non tender, soft. negative: guarding, rebound - MUSCULOSKELETAL Extremity: non-tender, other (bilateral BKA). negative: deformity, erythema, swelling - SKIN Integumentary: normal color, normal turgor, warm/dry. negative: cyanosis, ecchymosis, jaundice - PSYCHIATRIC Psych/Mental Status: oriented x 3, other (drowsy). negative: paranoid, tearful <Sandeep Gongora - Last Filed: 06/26/18 00:23> Progress - PLAN OF CARE/RESULTS Progress/Plan/Lab Results: Vital Signs - 8 hr 06/25/18 05:10 06/25/18 05:13 06/25/18 05:31 Pulse Rate 82 54 L Respiratory Rate 21 15 Blood Pressure 151/99 153/99 O2 Sat by Pulse Oximetry 98 98 100 06/25/18 06:01 Pulse Rate Respiratory Rate Blood Pressure 148/89 O2 Sat by Pulse Oximetry 99 Orders Category Date Time Status Regular Diet Diet 06/23/18 15:21 Completed Regular Diet Diet 06/25/18 06:27 Active cxr [CHEST-PORTABLE] [RAD] Stat Exams 06/23/18 14:15 Completed ALCOHOL BLOOD Stat Lab 06/24/18 01:37 Completed CBC WITH ELECTRONIC DIFF [HEME] Stat Lab 06/23/18 15:15 Completed CMP [COMPREHENSIVE METABOLIC PANEL] [CHEM] Stat Lab 06/23/18 15:15 Completed TROPONIN T Stat Lab 06/23/18 15:15 Completed URINE DRUG SCREEN Stat Lab 06/24/18 02:32 Completed 0.9% Sodium Chloride Inj [Ns] 1,000 ml Med 06/23/18 15:35 Discontinued IV 999 mls/hr 0.9% Sodium Chloride Inj [Ns] 1,000 ml Med 06/23/18 19:23 Discontinued IV 999 mls/hr Baclofen [Lioresal] Med 06/24/18 08:16 Discontinued 20 mg PO NOW ONE Baclofen [Lioresal] Med 06/24/18 18:16 Discontinued 20 mg PO NOW ONE Baclofen [Lioresal] Med 06/25/18 06:17 Discontinued 20 mg PO NOW ONE Gabapentin [Neurontin] Med 06/24/18 08:16 Discontinued 800 mg PO NOW ONE Gabapentin [Neurontin] Med 06/24/18 18:16 Discontinued 800 mg PO NOW ONE Gabapentin [Neurontin] Med 06/25/18 06:04 Discontinued 800 mg PO NOW ONE Ketorolac [Toradol] Med 06/23/18 16:37 Discontinued 15 mg IV NOW ONE Oxycodone/APAP 10 mg/325 mg [Percocet-10] Med 06/24/18 01:19 Discontinued 1 each PO NOW ONE Oxycodone/APAP 5 mg/325 mg [Percocet-5] Med 06/24/18 08:12 Discontinued 1 each .ROUTE .STK-MED ONE Oxycodone/APAP 5 mg/325 mg [Percocet-5] Med 06/24/18 17:10 Discontinued 1 each .ROUTE .STK-MED ONE Oxycodone/APAP 5 mg/325 mg [Percocet-5] Med 06/24/18 08:15 Discontinued 1 each PO NOW ONE Oxycodone/APAP 5 mg/325 mg [Percocet-5] Med 06/24/18 17:08 Discontinued 1 each PO NOW ONE Oxycodone/APAP 5 mg/325 mg [Percocet-5] Med 06/25/18 05:13 Discontinued 1 each PO NOW ONE EKG [EKG] Stat Ther 06/23/18 14:14 Draft Result Diagrams: 06/23/18 15:15 06/23/18 15:15 - REASSESSMENT Reassessment #1 Time Reassessed: 07:02 Status: unchanged Reassessment #3 Time Reassessed: 09:55 (Patient has been screened and is not appropriate for inpatient care. He denies suicidal thoughts and states he was joking with the nurses at the assisted.) Status: improving <Errol Perez - Last Filed: 06/25/18 09:59> - PLAN OF CARE/RESULTS Progress/Plan/Lab Results: Vital Signs - 8 hr 06/23/18 13:53 Temperature 98.4 F Pulse Rate 59 L Respiratory Rate 18 Blood Pressure 126/81 O2 Sat by Pulse Oximetry 94 L Patient is angry, anxious and cursing. Nurse had difficulties with him. I think Patient BP drop down and get drowsy from medications given in the assisted to calm him down during the transport. I reassess patient multiple times during ER stay. Psych facility in [place] cancelled his bed, I called the facility but no physician integration consultant and administration can do nothing for today. Nurse called the assisted he came from and patient doesn't have his bed anymore. case discussed with Dr. Bronson and plan is to have psychiatric screen. patient has behavioral problems, denies SI/HI. Result Diagrams: 06/23/18 15:15 06/23/18 15:15 - EKG 1 Time of EKG reading by physician:: 15:33 EKG Read and Signed by:: Sandeep Gongora EKG Interpretation (*Must complete 3 of following elements*): Abnormal Rate: 53 Rhythm: sinus bradycardia MO Interval: normal Comments: otherwise normal ECG - CHANGE OF SHIFT REPORT (ED Provider) 1 Report Given and Care Transferred to:: Dr. Bronson Time of Transfer: 02:47 Items Pending: Other (waiting for psych screen Hx, PE and patient care disc ussed) <Sandeep Gongora - Last Filed: 06/26/18 00:23> Departure - Departure Date of Disposition Decision: 06/25/18 Time of Disposition Decision: 09:59 Certified Medical Emergency: Emergent - Critical Care Note This patient required my direct & personal management of CC.: No <Errol Perez - Last Filed: 06/25/18 09:59> <Sandeep Gongora - Last Filed: 06/26/18 00:23> - Departure DIAGNOSIS: Decubital ulcer, Depression, Behavioral disorder Disposition: HOME 01 Condition: Stable Attestation - Physician/ MARIBELL Attestation Patient care was provided by Advanced Practice Provider:: No The physician spent face to face time with patient:: Yes Advanced Practice Provider documentation review:: Supervising physician onsite and consulted in the evaluation and care of this patient. The physician did have a face to face encounter with the patient. <Sandeep Gongora - Last Filed: 06/26/18 00:23> This chart was documented by the indicated scribe, (Geneva Quezada Scribe) and accurately reflects the services I performed and decisions made by , Sandeep Vergara MD, as attested by the provider's signature.
[2018-06-26] MEDS ORDERED: DUONEB (A & A) INH PRN (01:24)
[2018-06-26] MEDS ORDERED: MOTRIN PO PRN (01:35)
[2018-06-26] MEDS ORDERED: SEROQUEL PO PRN (01:46)
[2018-06-26] MEDS: PERCOCET-5 PO PRN ×5 (02:44→22:40)
[2018-06-26] MEDS: COMBIVENT RESPIMAT INHALER INH SCH ×2 (04:20→10:00)
[2018-06-26] MEDS: ATIVAN PO PRN ×3 (07:35→20:39)
[2018-06-26] MEDS: COLACE PO SCH ×2 (07:35→08:06)
[2018-06-26] MEDS: LIORESAL PO SCH ×5 (07:35→20:37)
[2018-06-26] MEDS: THERA M PLUS PO SCH ×2 (07:35→08:07)
[2018-06-26] MEDS: VITAMIN B-12 PO SCH ×3 (07:35→20:39)
[2018-06-26] MEDS: DEPAKOTE PO SCH ×3 (07:36→20:38)
[2018-06-26] MEDS: NEURONTIN PO SCH ×5 (07:36→20:38)
[2018-06-26] MEDS: VITAMIN C PO SCH ×3 (07:36→20:38)
[2018-06-26] MEDS: PROVERA PO SCH ×2 (07:36→08:06)
[2018-06-26] MEDS: ZINC SULFATE PO SCH ×3 (07:36→20:38)
[2018-06-26 07:59] LABS: AGAP 9; ALB/GLOB RATIO 1.3; ALBUMIN 3.7 g/dL (3.5-5.0); ALKALINE PHOSPHATASE 62 U/L (32-122); BUN 22 mg/dL (8-22); CALCIUM 8.8 mg/dL (8.8-10.2); CHLORIDE 108 mmol/L (98-107); COSMO 291; ESTIMATED GFR > 60; GLUCOSE 111 mg/dL (70-104); GOT 14 U/L (10-34); GPT 10 U/L (10-44); MAGNESIUM 2.2 mg/dL (1.5-2.7); POTASSIUM 4.6 mmol/L (3.5-5.1); SODIUM 144 mmol/L (136-145); TCO2 27 mmol/L (25-35); TOTAL BILIRUBIN 0.28 mg/dL (0.20-1.00); TOTAL PROTEIN 6.6 g/dL (6.3-8.3)
--- NOTE | 2018-06-26 13:02 | PROGRESS NOTE ---
DATE: 06/26/2018 SUBJECTIVE: Mr. Mays is awake. He is complaining of some neuropathic type pain in his leg, but he is breathing comfortably. OBJECTIVE: Vitals: Remains afebrile, temperature 98.7 degrees, pulse 70, respirations 18, blood pressure 152/92. Eyes: Pupils are equal. Neck: No distended neck veins. Lungs: Clear in all lung fragoso. Cardiovascular: Regular rhythm and rate without murmur or S3. Extremities: He has bilateral [id number] amputation. LABORATORY: Reviewed from yesterday. Sodium 144, potassium 4.6, chloride 108, BUN 22, creatinine 1. Liver functions unremarkable. TSH 2.49. 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 ASSESSMENT AND PLAN: 1. Mainly social admission. He has no place to go. I do not see any active bacterial infection. There was some concern about low blood pressures. His blood pressures seem to be stable. 2. I do think we can watch his medications to see if we need to make some changes based on how his blood pressures are doing. He is on Depakote 1000 mg at bedtime, Zocor 40 mg at bedtime, ascorbic acid 500 mg b.i.d., budesonide formoterol 2 puffs b.i.d., vitamin B12 1000 mcg b.i.d., Depakote he also takes 250 mg p.o. q.a.m., Colace 100 mg a day, Cymbalta 20 mg at bedtime, Neurontin 800 mg, which I think he takes t.i.d., Motrin as needed. He is on ipratropium-albuterol inhaler q.6, melatonin 5 mg p.o. at bedtime p.r.n., oxycodone 5 mg 1 q.4 hours p.r.n., zinc sulfate 220 mg b.i.d., Seroquel 550 mg p.o. p.r.n., oxycodone 5 mg as needed. So we will continue his current medications. cc: David Barnhart MD
[2018-06-26] MEDS: SYMBICORT 80/4.5 MICROGM INHALER INH SCH ×2 (16:09→22:10)
[2018-06-26] MEDS: DUONEB (A & A) INH SCH ×2 (16:10→22:10)
[2018-06-26] MEDS: CYMBALTA PO SCH (20:37)
[2018-06-26] MEDS: ZOCOR PO SCH (20:38)
[2018-06-26] MEDS: MELATONIN PO PRN (20:39)
[2018-06-27] MEDS: DUONEB (A & A) INH SCH ×4 (04:00→21:35)
[2018-06-27] MEDS: PERCOCET-5 PO PRN ×4 (09:10→23:57)
[2018-06-27] MEDS: VITAMIN C PO SCH ×2 (09:11→20:20)
[2018-06-27] MEDS: THERA M PLUS PO SCH (09:11)
[2018-06-27] MEDS: DEPAKOTE PO SCH ×2 (09:11→20:20)
[2018-06-27] MEDS: COLACE PO SCH (09:11)
[2018-06-27] MEDS: ZINC SULFATE PO SCH ×2 (09:11→20:20)
[2018-06-27] MEDS: VITAMIN B-12 PO SCH ×2 (09:11→23:58)
[2018-06-27] MEDS: NEURONTIN PO SCH ×3 (09:12→20:20)
[2018-06-27] MEDS: LIORESAL PO SCH ×4 (09:12→20:20)
[2018-06-27] MEDS: PROVERA PO SCH (09:12)
[2018-06-27] MEDS: ATIVAN PO PRN ×2 (09:12→18:34)
[2018-06-27] MEDS: SYMBICORT 80/4.5 MICROGM INHALER INH SCH ×2 (10:06→21:35)
--- NOTE | 2018-06-27 18:51 | PROGRESS NOTE ---
DATE: 06/27/2018 SUBJECTIVE: Mr. Mays is resting comfortably. No complaints. Breathing comfortably at this time. OBJECTIVE: Vital Signs: Temperature 98.7 degrees, pulse 69, respirations 18, blood pressure 99/63. HEENT: Pupils are equal and round. Lungs: Clear in all lung fragoso. Cardiovascular: Regular rate and rhythm without murmur or S3. Abdomen: Soft. Skin: Warm and dry. LABORATORY STUDIES: Urine output is 350 mL. ASSESSMENT AND PLAN: He really has no place to go. This is basically a social admission. Blood pressures appear to be stable. Continue his current medication. He has had no sign of seizures. His lab was really unremarkable except for mild normocytic anemia. Electrolytes look good. Continue to search for placement opportunities and I am going to continue his previous medication. cc: David Barnhart MD
[2018-06-27] MEDS: ZOCOR PO SCH (20:20)
[2018-06-27] MEDS: MELATONIN PO PRN (20:20)
[2018-06-27] MEDS: CYMBALTA PO SCH (20:20)
[2018-06-27] MEDS: SANTYL OINT TOP SCH (23:53)
[2018-06-28] MEDS: ATIVAN PO PRN ×2 (00:45→10:03)
[2018-06-28] MEDS: SEROQUEL PO PRN (03:41)
[2018-06-28] MEDS: PERCOCET-5 PO PRN ×3 (03:46→21:06)
[2018-06-28] MEDS: DUONEB (A & A) INH SCH ×4 (04:09→23:25)
[2018-06-28] MEDS: SYMBICORT 80/4.5 MICROGM INHALER INH SCH ×2 (09:48→20:30)
[2018-06-28] MEDS: PROVERA PO SCH (09:58)
[2018-06-28] MEDS: NEURONTIN PO SCH ×3 (09:59→21:05)
[2018-06-28] MEDS: LIORESAL PO SCH ×4 (09:59→21:05)
[2018-06-28] MEDS: VITAMIN C PO SCH ×2 (09:59→21:06)
[2018-06-28] MEDS: COLACE PO SCH (09:59)
[2018-06-28] MEDS: THERA M PLUS PO SCH (09:59)
[2018-06-28] MEDS: DEPAKOTE PO SCH ×2 (09:59→21:06)
[2018-06-28] MEDS: VITAMIN B-12 PO SCH ×2 (10:00→21:05)
[2018-06-28] MEDS: ZINC SULFATE PO SCH ×2 (10:03→21:05)
[2018-06-28] MEDS: SANTYL OINT TOP SCH (10:08)
--- NOTE | 2018-06-28 11:12 | PROGRESS NOTE ---
DATE: 06/28/2018 SUBJECTIVE: This morning, Mr. Mays refers to be doing fairly okay. He does have some generalized pains and discomforts, but for most part, he was sleeping. He woke up. He said he had just taken his breakfast, and he is feeling okay. OBJECTIVE: Vital signs: Blood pressure is 121/69, pulse is 87, respirations 18, temperature 98.2 degrees. General: Mr. Mays is a 58-year-old gentleman. He is in bed, does not seems to be in any distress. Mucosa is pink and moist. Anicteric and acyanotic. Neck: Supple. Chest: Clear to auscultation. No crepitations. No rhonchi. Cardiovascular: Regular rate and rhythm. Abdomen: Soft. There is an old surgical scar on the anterior abdominal wall. Extremities: Bilateral BKA noted. Central nervous system: Patient is awake, alert, and follows basic commands. LABORATORY DATA: None for today. CURRENT MEDICATIONS: Have also been reviewed. He is not on any antimicrobial at this point. No microbiology data. No imaging studies today. kettle worker note seems to suggest that they have referral to [facility] for placement. ASSESSMENT: 1. History of bilateral below-knee amputations. This is well healed. Stumps look clean. 2. Social issues. Patient currently seems to be homeless and home health care social worker is awaiting him placement. 3. History of chronic obstructive pulmonary disease. On intermittent oxygen therapy. 4. History of bipolar disorder. Patient is on medications. PLAN: So in general, I think Mr. Mays is fairly stable. We are still awaiting final arrangements from Social Work and then get him disposed. cc: Satnam Nelson MD
[2018-06-28] MEDS: ZOCOR PO SCH (21:05)
[2018-06-28] MEDS: CYMBALTA PO SCH (21:05)
[2018-06-28] MEDS: MELATONIN PO PRN (21:05)
[2018-06-29] MEDS: PERCOCET-5 PO PRN ×5 (04:22→21:55)
[2018-06-29] MEDS: DUONEB (A & A) INH SCH ×4 (05:35→22:10)
[2018-06-29 07:39] LABS: BASO# 0.03 X1000 (0.0-0.2); BASO% 0.4 % (0.0-0.8); EOS# 0.35 X1000 (0.0-0.7); EOS% 4.9 % (0.0-10.0); HEMATOCRIT 32.2 % (42.0-52.0); HEMOGLOBIN 9.9 g/dL (14.0-18.0); LYMPH# 1.76 X1000 (1.2-3.4); LYMPH% 24.7 % (20.5-51.1); MCH 30.8 PG (27-31); MCHC 30.7 g/dL (33-37); MCV 100.3 FL (81-99); MONO# 0.79 X1000 (0.11-0.59); MONO% 11.1 % (1.7-9.3); MPV 10.8 FL (7.4-10.4); NEUT% 58.9 % (42.2-75.2); PLT 133 X1000 (130-400); RBC 3.21 XMIL (4.7-6.1); RDW 14.7 % (11.5-14.5); WBC 7.13 X1000 (4.8-10.8)
[2018-06-29 08:07] LABS: AGAP 10; ALB/GLOB RATIO 1.2; ALBUMIN 3.6 g/dL (3.5-5.0); ALKALINE PHOSPHATASE 57 U/L (32-122); BUN 38 mg/dL (8-22); CALCIUM 8.4 mg/dL (8.8-10.2); CHLORIDE 107 mmol/L (98-107); COSMO 295; CREATININE 1.1 mg/dL (0.7-1.2); ESTIMATED GFR > 60; GLUCOSE 116 mg/dL (70-104); GOT 12 U/L (10-34); GPT 9 U/L (10-44); POTASSIUM 4.9 mmol/L (3.5-5.1); SODIUM 143 mmol/L (136-145); TCO2 26 mmol/L (25-35); TOTAL BILIRUBIN 0.17 mg/dL (0.20-1.00); TOTAL PROTEIN 6.6 g/dL (6.3-8.3)
[2018-06-29] MEDS: VITAMIN B-12 PO SCH ×2 (08:16→21:55)
[2018-06-29] MEDS: PROVERA PO SCH (08:16)
[2018-06-29] MEDS: VITAMIN C PO SCH ×2 (08:16→21:56)
[2018-06-29] MEDS: ZINC SULFATE PO SCH ×2 (08:17→21:55)
[2018-06-29] MEDS: DEPAKOTE PO SCH ×2 (08:17→21:55)
[2018-06-29] MEDS: NEURONTIN PO SCH ×3 (08:17→21:55)
[2018-06-29] MEDS: LIORESAL PO SCH ×4 (08:17→21:55)
[2018-06-29] MEDS: COLACE PO SCH (08:17)
[2018-06-29] MEDS: THERA M PLUS PO SCH (08:17)
[2018-06-29] MEDS: ATIVAN PO PRN ×2 (08:18→16:09)
[2018-06-29] MEDS: SANTYL OINT TOP SCH (08:18)
[2018-06-29] MEDS: SYMBICORT 80/4.5 MICROGM INHALER INH SCH ×2 (10:16→20:25)
--- NOTE | 2018-06-29 13:51 | PROGRESS NOTE ---
DATE: 06/29/2018 SUBJECTIVE: This morning, Mr. Mays refers to be doing okay. Denies any complaints. We are still pending rehabilitation placement for him. OBJECTIVE: Vital signs: Blood pressure is 133/71, pulse of 56, respirations is 19, temperature is 97.9 degrees, the patient is saturating 100% on nasal cannula. On general exam, Mr. Mays is a 58-year-old male. He is in bed, no distress. Mucosa is pink and moist. Anicteric. Acyanotic. Neck is supple. Chest was clear to auscultation. No crepitations. No rhonchi. Cardiovascular: Regular rate and rhythm. No murmurs, no rubs, no gallops. Gastrointestinal: Abdomen is soft. There is an old midline surgical scar. Extremities: Bilateral BKA. Central nervous system: Patient is awake, alert, and follows commands. LABORATORY DATA: Has also been reviewed. WBC is 7.13, hemoglobin is 9.9, platelet count of 133,000. Chemistry is reviewed and is completely normal. MEDICATION: The patient's current medications have all been reviewed. ASSESSMENT: 1. History of bilateral below-knee amputations. 2. Chronic obstructive pulmonary disease , currently not in exacerbation. 3. Bipolar disorder. 4. Social issues: print binding and finishing worker is working on that. 5. The patient is pending placement. cc: Satnam Nelson MD
[2018-06-29] MEDS: CYMBALTA PO SCH (21:55)
[2018-06-29] MEDS: ZOCOR PO SCH (21:56)
[2018-06-30] MEDS: DUONEB (A & A) INH SCH ×4 (03:45→20:15)
[2018-06-30] MEDS: PERCOCET-5 PO PRN ×4 (03:50→21:15)
[2018-06-30] MEDS: ATIVAN PO PRN ×3 (06:48→21:16)
[2018-06-30] MEDS: NEURONTIN PO SCH ×3 (08:16→21:15)
[2018-06-30] MEDS: SEROQUEL PO PRN ×2 (08:16→21:15)
[2018-06-30] MEDS: ZINC SULFATE PO SCH ×2 (08:16→21:15)
[2018-06-30] MEDS: PROVERA PO SCH (08:16)
[2018-06-30] MEDS: VITAMIN B-12 PO SCH ×2 (08:16→21:16)
[2018-06-30] MEDS: LIORESAL PO SCH ×4 (08:17→21:14)
[2018-06-30] MEDS: THERA M PLUS PO SCH (08:17)
[2018-06-30] MEDS: DEPAKOTE PO SCH ×2 (08:17→21:15)
[2018-06-30] MEDS: VITAMIN C PO SCH ×2 (08:17→21:14)
[2018-06-30] MEDS: COLACE PO SCH (08:17)
[2018-06-30] MEDS: SYMBICORT 80/4.5 MICROGM INHALER INH SCH ×2 (09:54→20:15)
--- NOTE | 2018-06-30 15:19 | PROGRESS NOTE ---
DATE: 06/30/2018 SUBJECTIVE: Today, Mr. Mays refers to be doing fairly okay. Denies any complaints. Still awaiting for placement. OBJECTIVE: Vital Signs: Blood pressure is 108/77, pulse is 82, respirations are 16, temperature is 98.9 degrees. General Examination: Mr. Mays is a 58-year-old, gentleman. He is in bed, no distress. HEENT: Mucosa is pink and moist. Anicteric. Acyanotic. Neck: Supple. Chest: Clear to auscultation. No crepitations. No rhonchi. Cardiovascular: Regular rate and rhythm. Abdomen: Soft, nontender. Extremities: Bilateral BKA noted. CABLE TELEVISION TECHNICIAN: Patient is awake, alert, and follows commands. Laboratory Data: No lab work for today. ASSESSMENT: 1. History of bilateral below-knee amputations. 2. Chronic obstructive pulmonary disease, currently not in exacerbation. 3. Bipolar disorder. 4. Social issues, pending placement. cc: Satnam Nelson MD
[2018-06-30] MEDS: SANTYL OINT TOP SCH (15:34)
[2018-06-30] MEDS: CYMBALTA PO SCH (21:15)
[2018-06-30] MEDS: ZOCOR PO SCH (21:16)
[2018-07-01] MEDS: DUONEB (A & A) INH SCH ×4 (03:55→21:32)
[2018-07-01] MEDS: SYMBICORT 80/4.5 MICROGM INHALER INH SCH ×2 (07:56→21:40)
[2018-07-01] MEDS: PERCOCET-5 PO PRN ×3 (10:55→20:43)
[2018-07-01] MEDS: PROVERA PO SCH (10:56)
[2018-07-01] MEDS: VITAMIN B-12 PO SCH ×2 (10:56→20:43)
[2018-07-01] MEDS: COLACE PO SCH (10:57)
[2018-07-01] MEDS: LIORESAL PO SCH ×4 (10:57→20:43)
[2018-07-01] MEDS: NEURONTIN PO SCH ×3 (10:57→20:43)
[2018-07-01] MEDS: DEPAKOTE PO SCH ×2 (10:58→20:43)
[2018-07-01] MEDS: THERA M PLUS PO SCH (10:58)
[2018-07-01] MEDS: SANTYL OINT TOP SCH (10:58)
[2018-07-01] MEDS: ZINC SULFATE PO SCH ×2 (10:58→20:43)
[2018-07-01] MEDS: VITAMIN C PO SCH ×2 (10:58→20:42)
--- NOTE | 2018-07-01 14:17 | PROGRESS NOTE ---
DATE: 07/01/2018 SUBJECTIVE: This morning Mr. Mays referred to be doing fairly okay. No new complaints. OBJECTIVE: His vital signs are stable. Blood pressure is 114/95, pulse is 65, respirations 18, temperature 98.2 degrees. Physical exam is unchanged. He continues to have bilateral BKA with clean stumps. Respiratory, cardiovascular, GI, and DIRECTOR OF APPLICATION DEVELOPMENT are unchanged. LABORATORY DATA: No immediate labs. ASSESSMENT: 1. History of bilateral below-knee amputations. 2. Chronic obstructive pulmonary disease, currently not in exacerbation. 3. Bipolar disorder, stable. 4. Social issues, pending placement. cc: Satnam Nelson MD
[2018-07-01] MEDS: CYMBALTA PO SCH (20:43)
[2018-07-01] MEDS: ZOCOR PO SCH (20:43)
[2018-07-02] MEDS: PERCOCET-5 PO PRN ×5 (00:45→19:21)
[2018-07-02] MEDS: MELATONIN PO PRN ×2 (00:45→21:45)
[2018-07-02] MEDS: DUONEB (A & A) INH SCH ×4 (03:57→22:11)
[2018-07-02] MEDS: COLACE PO SCH (08:35)
[2018-07-02] MEDS: DEPAKOTE PO SCH ×2 (08:36→21:38)
[2018-07-02] MEDS: LIORESAL PO SCH ×4 (08:36→21:39)
[2018-07-02] MEDS: VITAMIN C PO SCH ×2 (08:36→21:39)
[2018-07-02] MEDS: THERA M PLUS PO SCH (08:36)
[2018-07-02] MEDS: ZINC SULFATE PO SCH ×2 (08:36→21:38)
[2018-07-02] MEDS: NEURONTIN PO SCH ×3 (08:36→21:40)
[2018-07-02] MEDS: VITAMIN B-12 PO SCH ×2 (08:36→21:39)
[2018-07-02] MEDS: SANTYL OINT TOP SCH (08:37)
[2018-07-02] MEDS: PROVERA PO SCH (08:37)
[2018-07-02] MEDS: SYMBICORT 80/4.5 MICROGM INHALER INH SCH ×2 (14:05→22:11)
--- NOTE | 2018-07-02 15:11 | PROGRESS NOTE ---
DATE: 07/02/2018 SUBJECTIVE: This morning Mr. Mays referred to be doing fairly okay. Denies any complaints. OBJECTIVE: Vital signs: Blood pressure is 123/79, pulse is 89, respirations are 17, temperature is 98.0 degrees, and patient is saturating 100% on 2 L of nasal cannula. General exam: Mr. Mays is a 58-year-old gentleman. He was in bed, no distress. HEENT: Mucosa is pink and moist. Anicteric. Acyanotic. Physical exam is unchanged. Patient has bilateral lower extremity BKA with clean stumps. Chest: Chest was clear to auscultation. Cardiovascular: Regular rate and rhythm. LABORATORY DATA: None for today. CURRENT MEDICATIONS: Have all been reviewed, and there is no change. ASSESSMENT: 1. History of bilateral below-knee amputations, stable. 2. Chronic obstructive pulmonary disease, currently not in exacerbation. 3. Bipolar disorder, stable. 4. Social issues pending placement. cc: Satnam Nelson MD
[2018-07-02] MEDS: ZOCOR PO SCH (21:38)
[2018-07-02] MEDS: CYMBALTA PO SCH (21:44)
[2018-07-02] MEDS: SEROQUEL PO PRN (21:45)
[2018-07-03] MEDS: DUONEB (A & A) INH SCH ×4 (03:33→22:30)
[2018-07-03] MEDS: SYMBICORT 80/4.5 MICROGM INHALER INH SCH ×2 (08:00→22:30)
[2018-07-03] MEDS: PROVERA PO SCH (09:28)
[2018-07-03] MEDS: VITAMIN B-12 PO SCH ×2 (09:28→22:08)
[2018-07-03] MEDS: NEURONTIN PO SCH ×3 (09:29→22:08)
[2018-07-03] MEDS: THERA M PLUS PO SCH (09:29)
[2018-07-03] MEDS: ZINC SULFATE PO SCH ×2 (09:29→22:08)
[2018-07-03] MEDS: VITAMIN C PO SCH ×2 (09:29→22:09)
[2018-07-03] MEDS: PERCOCET-5 PO PRN ×2 (09:29→13:41)
[2018-07-03] MEDS: LIORESAL PO SCH ×4 (09:29→22:08)
[2018-07-03] MEDS: SANTYL OINT TOP SCH (09:29)
[2018-07-03] MEDS: COLACE PO SCH (09:29)
[2018-07-03] MEDS: DEPAKOTE PO SCH ×2 (09:30→22:09)
--- NOTE | 2018-07-03 10:51 | PROGRESS NOTE ---
DATE: 07/03/2018 SUBJECTIVE: This morning, Mr. Mays referred to be doing okay. No new complaints. He did tell me that he has a home to go to and that he would want to be discharged home. I tried to call the daughter on the phone number in his chart and I got a voicemail. I left a message on the phone. OBJECTIVELY: Vitals: Current vitals are stable. Blood pressure is 119/69, pulse is 68, respiration is 16, temperature 98 degrees. The patient was saturating 97% on 3 L. General: Mr. Mays is a 58-year-old gentleman. He is in bed, no distress. HEENT: Mucosa is pink and moist. Anicteric. Acyanotic. Neck: Supple. Chest: Clear to auscultation. No crepitations. No rhonchi. Cardiovascular: Regular rate and rhythm. Abdomen: Soft. Extremities: Bilateral below-knee amputation with clean stump. LABORATORIES: No labs for this morning. MEDICATIONS: Have all been reviewed. ASSESSMENT: 1. Bilateral below-knee amputation with clean stump. 2. Chronic obstructive pulmonary disease, currently not in exacerbation. 3. Bipolar disorder, stable. 4. Social issues pending placement. I am waiting for the daughter to call so we can discuss more. Apparently they have faxed to multiple areas for placement. Unfortunately, we have not been successful and this morning, Mr. Mays told me that he has a home to go to and that he would prefer to be discharged home. cc: Satnam Nelson MD
[2018-07-03] MEDS: CYMBALTA PO SCH (22:08)
[2018-07-03] MEDS: ZOCOR PO SCH (22:08)
[2018-07-04] MEDS: DUONEB (A & A) INH SCH ×4 (04:00→20:05)
[2018-07-04] MEDS: NEURONTIN PO SCH ×3 (09:01→20:45)
[2018-07-04] MEDS: ZINC SULFATE PO SCH ×2 (09:01→20:45)
[2018-07-04] MEDS: COLACE PO SCH (09:01)
[2018-07-04] MEDS: LIORESAL PO SCH ×4 (09:02→20:44)
[2018-07-04] MEDS: THERA M PLUS PO SCH (09:02)
[2018-07-04] MEDS: DEPAKOTE PO SCH ×2 (09:02→20:44)
[2018-07-04] MEDS: VITAMIN C PO SCH ×2 (09:02→20:45)
[2018-07-04] MEDS: VITAMIN B-12 PO SCH ×2 (09:02→20:44)
[2018-07-04] MEDS: PERCOCET-5 PO PRN ×4 (09:02→22:33)
[2018-07-04] MEDS: PROVERA PO SCH (09:02)
[2018-07-04] MEDS: SANTYL OINT TOP SCH (09:04)
[2018-07-04] MEDS: SYMBICORT 80/4.5 MICROGM INHALER INH SCH ×2 (10:34→19:50)
--- NOTE | 2018-07-04 14:40 | PROGRESS NOTE ---
DATE: 07/04/2018 SUBJECTIVE: This morning Mr. Mays referred to be doing okay. Denies any complaints. He said he can be discharged tomorrow with a 1st cousin of his that will be wanting to come and pick him up. I spoke with the director of social media marketing today, and apparently Mr. Mays does not have a home to go to and that there is a place in [place] by the name, [facility], that will come and evaluate him for placement. OBJECTIVE: Vital Signs: Blood pressure is 122/76, pulse is 72, respirations 16, temperature is 98.1 degrees. General: Mr. Mays is a 58-year-old gentleman. He is in bed in no distress. Mucosa is pink and moist. Anicteric. Acyanotic. Neck: Supple. Chest: Clear to auscultation. Cardiovascular: Regular rate and rhythm. Abdomen: Soft. Extremities: There are bilateral BKA's with clean stumps. DUPLICATING MACHINE MECHANIC: Patient is awake, alert, and oriented. LABORATORY DATA: None for today. CURRENT MEDICATIONS: Have all been reviewed and no changes. ASSESSMENT: 1. Bilateral below-knee amputations with clean stumps. 2. History of chronic obstructive pulmonary disease. Currently not in exacerbation. 3. Bipolar disorder, stable. 4. Social issues pending placement. PLAN: I have spoken extensively this morning with the director of social media marketing (Ms. Gan). I understand there is a place in [place] which is willing to review the chart and see if they can come and see the patient in the hospital and admit if they can. horticultural worker has contacted numerous places. However, those places have turned down the application. We will follow up with further arrangements with Social Work and go from there. On the other hand, Mr. Mays, himself, said there is a gentleman by name Saw who works here in the hospital who will be coming tomorrow to check on him, and hopefully he can get him to take him home. However, I understand from what the director of social media marketing told me today that Mr. Mays has no home and that the is actually getting chemotherapy and is living with a sister, so there is really nobody at home to take care of Mr. Mays if he is left to go home. He is a bilateral amputee, and I am not sure he will be able to take care of himself if he goes home alone. cc: Satnam Nelson MD MTDD
[2018-07-04] MEDS: ZOCOR PO SCH (20:45)
[2018-07-04] MEDS: CYMBALTA PO SCH (20:45)
[2018-07-05] MEDS: PERCOCET-5 PO PRN ×5 (02:21→22:15)
[2018-07-05] MEDS: SEROQUEL PO PRN (02:23)
[2018-07-05] MEDS: MELATONIN PO PRN (02:24)
[2018-07-05] MEDS: DUONEB (A & A) INH SCH ×4 (03:40→22:00)
[2018-07-05] MEDS: ATIVAN PO PRN ×2 (08:09→14:18)
[2018-07-05] MEDS: SANTYL OINT TOP SCH (08:09)
[2018-07-05] MEDS: THERA M PLUS PO SCH (08:10)
[2018-07-05] MEDS: NEURONTIN PO SCH ×3 (08:10→21:48)
[2018-07-05] MEDS: COLACE PO SCH (08:10)
[2018-07-05] MEDS: DEPAKOTE PO SCH ×2 (08:10→21:48)
[2018-07-05] MEDS: VITAMIN C PO SCH ×2 (08:10→21:49)
[2018-07-05] MEDS: LIORESAL PO SCH ×4 (08:10→21:49)
[2018-07-05] MEDS: VITAMIN B-12 PO SCH ×2 (08:10→21:47)
[2018-07-05] MEDS: ZINC SULFATE PO SCH ×2 (08:10→21:48)
[2018-07-05] MEDS: PROVERA PO SCH (08:10)
[2018-07-05] MEDS: SYMBICORT 80/4.5 MICROGM INHALER INH SCH ×2 (09:30→22:00)
--- NOTE | 2018-07-05 16:58 | PROGRESS NOTE ---
DATE: 07/05/2018 SUBJECTIVE: Patient resting on bed. OBJECTIVE: Vital Signs: Temperature 98.4 degrees, pulse 58, respiratory 16, blood pressure 107/65, O2 saturation is 95%. HEENT: Atraumatic, normocephalic. Cardiovascular: S1, S2. Respiratory: Has evidence of good air entry bilaterally. Abdomen: Soft, nontender, no masses felt. Extremities: Has bilateral below-knee amputation. LABORATORY DATA: None. ASSESSMENT: 1. Bilateral below-knee amputation with clean stumps. 2. Chronic obstructive pulmonary disease stable. 3. Bipolar disorder stable. PLAN: The patient ready for discharge but placement in a detention facility has been a challenge. cc: Michael Bueno MD
[2018-07-05] MEDS: ZOCOR PO SCH (21:47)
[2018-07-05] MEDS: CYMBALTA PO SCH (21:48)
[2018-07-05] MEDS: TYLENOL PO PRN (21:51)
[2018-07-06] MEDS: PERCOCET-5 PO PRN ×4 (02:28→23:12)
[2018-07-06] MEDS: ATIVAN PO PRN ×2 (02:39→09:31)
[2018-07-06] MEDS: DUONEB (A & A) INH SCH ×4 (03:55→22:01)
[2018-07-06] MEDS: TYLENOL PO PRN (04:27)
[2018-07-06] MEDS: VITAMIN B-12 PO SCH ×2 (09:31→23:12)
[2018-07-06] MEDS: DEPAKOTE PO SCH ×2 (09:31→23:11)
[2018-07-06] MEDS: ZINC SULFATE PO SCH ×2 (09:31→23:11)
[2018-07-06] MEDS: LIORESAL PO SCH ×5 (09:31→23:12)
[2018-07-06] MEDS: PROVERA PO SCH (09:32)
[2018-07-06] MEDS: VITAMIN C PO SCH ×2 (09:32→23:11)
[2018-07-06] MEDS: THERA M PLUS PO SCH (09:32)
[2018-07-06] MEDS: NEURONTIN PO SCH ×3 (09:32→23:11)
[2018-07-06] MEDS: COLACE PO SCH (09:35)
[2018-07-06] MEDS: SYMBICORT 80/4.5 MICROGM INHALER INH SCH ×2 (10:03→22:03)
[2018-07-06] MEDS: SANTYL OINT TOP SCH (12:33)
[2018-07-06] MEDS: SEROQUEL PO PRN (12:33)
--- NOTE | 2018-07-06 15:25 | PROGRESS NOTE ---
DATE: 07/06/2018 SUBJECTIVE: The patient is resting in bed. OBJECTIVE: Vital Signs: Temperature 98.3 degrees, pulse 85, respirations 18, blood pressure 111/67, and oxygen saturation is 95%. HEENT: Patient is atraumatic, normocephalic. Cardiovascular: S1, S2. Respiratory: Evidence of good entry bilaterally. Abdomen: Soft. Nontender. No masses felt. Extremities: Patient has bilateral below-knee amputation. ASSESSMENT: 1. Bilateral below-knee amputation. 2. Chronic obstructive pulmonary disease. 3. Bipolar disorder. PLAN: The patient is ready for discharge, but placement in a group home facility has been a challenge. Consider speaking with the patient's to get patient back to his private home. cc: Michael Bueno MD
[2018-07-06] MEDS: CYMBALTA PO SCH (23:12)
[2018-07-06] MEDS: ZOCOR PO SCH (23:12)
[2018-07-07] MEDS: DUONEB (A & A) INH SCH ×4 (03:29→21:54)
[2018-07-07] MEDS: DEPAKOTE PO SCH ×2 (08:37→21:37)
[2018-07-07] MEDS: THERA M PLUS PO SCH (08:38)
[2018-07-07] MEDS: VITAMIN B-12 PO SCH ×2 (08:38→21:39)
[2018-07-07] MEDS: NEURONTIN PO SCH ×3 (08:38→21:38)
[2018-07-07] MEDS: VITAMIN C PO SCH ×2 (08:39→21:39)
[2018-07-07] MEDS: LIORESAL PO SCH ×4 (08:39→21:38)
[2018-07-07] MEDS: ZINC SULFATE PO SCH ×2 (08:39→21:39)
[2018-07-07] MEDS: COLACE PO SCH (08:40)
[2018-07-07] MEDS: PROVERA PO SCH (09:17)
[2018-07-07] MEDS: SYMBICORT 80/4.5 MICROGM INHALER INH SCH ×2 (10:36→21:54)
--- NOTE | 2018-07-07 15:21 | PROGRESS NOTE ---
DATE: 07/07/2018 SUBJECTIVE: The patient is resting comfortably in bed. Not in any obvious distress. OBJECTIVE: Vital Signs: Temperature is 98 degrees, pulse 75, respirations 20, blood pressure 103/59, oxygen saturation is 97%. HEENT: Atraumatic, normocephalic. Cardiovascular System: S1, S2. Respiratory System: Has evidence of good air entry bilaterally. Abdomen: Soft, nontender. No masses felt. Extremities: Has bilateral [id number] amputations. Central Nervous System: No obvious focal deficit noted. Labs: None. ASSESSMENT: 1. Bilateral nbfle-tjr-dipj amputations. 2. Chronic obstructive pulmonary disease. 3. Bipolar disorder. 4. Congestive heart failure, stable. 5. Diabetes mellitus type 2. 6. Obesity. PLAN: The patient is ready for discharge. I discussed with social work lecturer today and they seemed to have identified a place for him to go, which is an all-male facility and also a psychiatric unit as well. Hopefully, patient can be discharged to this facility once the bed is ready and has been cleared by the state. cc: Michael Bueno MD
[2018-07-07] MEDS: SANTYL OINT TOP SCH (16:45)
[2018-07-07] MEDS: CYMBALTA PO SCH (21:39)
[2018-07-07] MEDS: ZOCOR PO SCH (21:39)
[2018-07-07] MEDS: PERCOCET-5 PO PRN (21:40)
[2018-07-08] MEDS: DUONEB (A & A) INH SCH ×4 (03:43→21:53)
[2018-07-08] MEDS: PERCOCET-5 PO PRN ×4 (07:11→22:51)
[2018-07-08] MEDS: NEURONTIN PO SCH ×3 (09:03→20:00)
[2018-07-08] MEDS: VITAMIN B-12 PO SCH ×2 (09:04→20:00)
[2018-07-08] MEDS: ZINC SULFATE PO SCH ×2 (09:04→20:00)
[2018-07-08] MEDS: PROVERA PO SCH (09:04)
[2018-07-08] MEDS: THERA M PLUS PO SCH (09:04)
[2018-07-08] MEDS: COLACE PO SCH (09:04)
[2018-07-08] MEDS: DEPAKOTE PO SCH ×2 (09:04→20:00)
[2018-07-08] MEDS: VITAMIN C PO SCH ×2 (09:04→20:01)
[2018-07-08] MEDS: LIORESAL PO SCH ×4 (09:04→20:01)
[2018-07-08] MEDS: SANTYL OINT TOP SCH (09:05)
[2018-07-08] MEDS: SYMBICORT 80/4.5 MICROGM INHALER INH SCH ×2 (10:25→21:53)
--- NOTE | 2018-07-08 15:57 | PROGRESS NOTE ---
DATE: 07/08/2018 SUBJECTIVE: The patient is resting in bed. OBJECTIVE: Vital signs: Temperature 98.9 degrees, pulse 74, respirations 18, blood pressure is 130/76, O2 saturation 97%. HEENT: Atraumatic, normocephalic. Cardiovascular: S1, S2. Respiratory: Has evidence of good air entry bilaterally. Abdomen: Soft, nontender. No masses felt. Extremities: Bilateral below-knee amputation. Central nervous system: No obvious focal deficit. LABORATORY DATA: None. ASSESSMENT: 1. Bilateral below-knee amputation. 2. Chronic obstructive pulmonary disease 3. Bipolar disorder. 4. Congestive heart failure, stable. 5. Type 2 diabetes mellitus. 6. Obesity. PLAN: The patient is ready for discharge. volunteer services assistant have identified a place for him to go which is an all male facility as well as a psychiatric unit. The patient will need to be cleared by the state before he can be discharged and we are looking at earliest possible discharge date of 07/22/2018. cc: Michael Bueno MD MTDD
[2018-07-08] MEDS: CYMBALTA PO SCH (20:01)
[2018-07-08] MEDS: ZOCOR PO SCH (20:01)
[2018-07-08] MEDS: TYLENOL PO PRN (23:06)
[2018-07-08] MEDS: MELATONIN PO PRN (23:06)
[2018-07-09] MEDS: PERCOCET-5 PO PRN ×3 (03:15→21:18)
[2018-07-09] MEDS: DUONEB (A & A) INH SCH ×4 (04:00→21:42)
[2018-07-09] MEDS: COLACE PO SCH (08:02)
[2018-07-09] MEDS: ZINC SULFATE PO SCH ×2 (08:02→21:17)
[2018-07-09] MEDS: LIORESAL PO SCH ×4 (08:03→21:17)
[2018-07-09] MEDS: PROVERA PO SCH (08:03)
[2018-07-09] MEDS: NEURONTIN PO SCH ×3 (08:03→21:18)
[2018-07-09] MEDS: THERA M PLUS PO SCH (08:03)
[2018-07-09] MEDS: VITAMIN C PO SCH ×2 (08:03→21:18)
[2018-07-09] MEDS: DEPAKOTE PO SCH ×2 (08:03→21:18)
[2018-07-09] MEDS: VITAMIN B-12 PO SCH ×2 (08:03→21:18)
[2018-07-09] MEDS: SANTYL OINT TOP SCH (09:10)
[2018-07-09] MEDS: SYMBICORT 80/4.5 MICROGM INHALER INH SCH ×2 (10:52→20:00)
--- NOTE | 2018-07-09 17:29 | PROGRESS NOTE ---
DATE: 07/09/2018 Today Mr. Mays remained fairly stable. Denied any complaint. He actually requesting to be discharged. OBJECTIVE: Vitals: Blood pressure is 141/85, pulse is 62, respiration 18, temperature 98.6 degrees, patient saturating 95%. Patient's physical exam is unchanged. Head was atraumatic and normocephalic. Cardiovascular: Regular rate and rhythm. No murmurs. Respiratory: Good air entry bilateral. Abdomen: Soft. Extremities: There is bilateral AKA with clean stump. HTML DEVELOPER: Patient was awake and follow commands. LAB: No lab work for today. ASSESSMENT: 1. Bilateral above-knee amputations. 2. Chronic obstructive pulmonary disease stable. 3. Bipolar disorder. 4. History of congestive heart failure stable. 5. Type 2 diabetes mellitus and obesity. 6. So in general I think Mr. Mays is still waiting for placement. cc: Satnam eNlson MD
[2018-07-09] MEDS: MELATONIN PO PRN (21:17)
[2018-07-09] MEDS: ZOCOR PO SCH (21:18)
[2018-07-09] MEDS: CYMBALTA PO SCH (21:18)
[2018-07-10] MEDS: DUONEB (A & A) INH SCH ×4 (03:38→21:56)
[2018-07-10] MEDS: PROVERA PO SCH (09:26)
[2018-07-10] MEDS: DEPAKOTE PO SCH ×2 (09:27→21:12)
[2018-07-10] MEDS: LIORESAL PO SCH ×4 (09:27→21:12)
[2018-07-10] MEDS: COLACE PO SCH (09:27)
[2018-07-10] MEDS: THERA M PLUS PO SCH (09:27)
[2018-07-10] MEDS: VITAMIN C PO SCH ×2 (09:27→21:12)
[2018-07-10] MEDS: ZINC SULFATE PO SCH ×2 (09:27→21:12)
[2018-07-10] MEDS: NEURONTIN PO SCH ×3 (09:27→21:12)
[2018-07-10] MEDS: VITAMIN B-12 PO SCH ×2 (09:27→21:12)
[2018-07-10] MEDS: SANTYL OINT TOP SCH (09:43)
[2018-07-10] MEDS: SYMBICORT 80/4.5 MICROGM INHALER INH SCH ×2 (11:38→21:55)
--- NOTE | 2018-07-10 12:15 | PROGRESS NOTE ---
DATE: 07/10/2018 SUBJECTIVE: Today, Mr. Mays referred to be doing okay and has no complaint. He said the is going to come today to pick him up. He said the had called earlier on this morning to the floor, and had notified the nurses that she will come and pick him up. OBJECTIVE: Current Vital Signs: Blood pressure is 124/79, pulse is 51, respirations are 18, temperature 97.9 degrees. General: Mr. Mays is a 58-year-old gentleman. He is in bed. He is not in any cardiopulmonary distress. HEENT: Mucosa is pink and moist. Anicteric. Acyanotic. Neck: Supple. Chest: Clear. Cardiovascular: Regular rate and rhythm. Abdomen: Soft. There is an old midline surgical scar. Extremities: Bilateral AKA with clean stump. DIRECTOR [employer]TER[employer]ISE SALES: The patient is awake and follows commands. LABORATORY DATA: No new labs for this morning. ASSESSMENT: 1. Bilateral above-knee amputations. 2. Chronic obstructive pulmonary disease, currently not in exacerbation. 3. Bipolar disorder, stable. 4. History of congestive heart failure, currently euvolemic. 5. Diabetes type 2 and obesity. 6. Social issues pending placement. cc: Satnam Nelson MD
[2018-07-10] MEDS: PERCOCET-5 PO PRN ×2 (16:51→21:12)
[2018-07-10] MEDS: MELATONIN PO PRN (21:12)
[2018-07-10] MEDS: ZOCOR PO SCH (21:14)
[2018-07-10] MEDS: CYMBALTA PO SCH (21:14)
[2018-07-11] MEDS: PERCOCET-5 PO PRN ×3 (02:03→14:08)
[2018-07-11] MEDS: DUONEB (A & A) INH SCH ×3 (07:13→15:56)
[2018-07-11] MEDS: VITAMIN B-12 PO SCH (09:00)
[2018-07-11] MEDS: COLACE PO SCH (09:00)
[2018-07-11] MEDS: DEPAKOTE PO SCH (09:00)
[2018-07-11] MEDS: ZINC SULFATE PO SCH (09:00)
[2018-07-11] MEDS: VITAMIN C PO SCH (09:00)
[2018-07-11] MEDS: THERA M PLUS PO SCH (09:00)
[2018-07-11] MEDS: NEURONTIN PO SCH ×2 (09:00→16:24)
[2018-07-11] MEDS: PROVERA PO SCH (09:01)
[2018-07-11] MEDS: LIORESAL PO SCH ×2 (09:01→14:08)
[2018-07-11] MEDS: SANTYL OINT TOP SCH (09:13)
[2018-07-11] MEDS: SYMBICORT 80/4.5 MICROGM INHALER INH SCH (11:02)
[2018-07-11 16:29] VITALS: BP 135/71
--- NOTE | 2018-07-14 20:05 | DISCHARGE SUMMARY ---
ADMISSION DATE: 06/25/2018 DISCHARGE DATE: 07/11/2018 DISCHARGE DIAGNOSES: 1. Bilateral geslr-ojf-[id number] amputation. 2. Chronic obstructive pulmonary disease, not in exacerbation. 3. Bipolar disorder. 4. History of congestive heart failure, not in exacerbation. Currently euvolemic. 5. Diabetes mellitus type 2. HOSPITAL COURSE: This is a 58-year-old male who was being transferred from [facility] to a psychiatric facility in [place], but because of low blood pressure he was transferred to our emergency department. We evaluated this patient. Unfortunately, after this patient was stable apparently the facility that was about to accept this patient refused to take him. Also we had talked with [facility] for admission, but both facilities refused to take care of this patient. Actually this patient was a social admission, because at the beginning the family does not want him to come home because they said they cannot take care of him. He was in the hospital. fancy needleworker and case management social worker were consulted. Finally, on Saturday 07/08 we have a bed for him but he refused to go to any facility except going home. We explained to him that if he refused to go, he will definitely not have anymore choices like going home. He acknowledged understanding, so on 07/11 I talked to him again and he was completely coherent and alert and awake, and he expressed his desire to go back home. In that regard, he is being discharged in stable condition. DISCHARGE PHYSICAL EXAMINATION: Vital signs: Temperature 98.1 degrees, heart rate 81, respiratory rate 16, blood pressure 131/71, O2 saturation 96% on room air. General examination: This is a chronically ill-looking 58-year-old male, lying in bed in no acute distress. Cardiovascular exam: S1, S2 heard. No murmurs, gallops or rubs. Regular rate and rhythm. Respiratory exam: Decreased breath sounds globally. The patient is not using any accessory muscles or having work of breathing. Abdomen is soft, nontender to palpation. Bowel sounds present. No organomegaly. Extremities: Bilateral [id number]-[id number] amputations. No signs of skin ulcers. Neurological exam: The patient is alert and oriented x3. Moves all 4 extremities. DISCHARGE DISPOSITION: Home to self-care. DISCHARGE MEDICATIONS: It is important to remark that we have provided prescriptions on all of his medications. 1. Melatonin 1 tablet p.o. at bedtime. 2. Divalproex 1000 mg 1 tablet p.o. at bedtime. 3. Duloxetine 20 mg p.o. at bedtime. 4. Simvastatin 20 mg 1 tablet p.o. at bedtime. 5. Medroxyprogesterone 1 tablet p.o. daily. 6. Seroquel 50 mg 1 tablet p.o. every 6 hours as needed. 7. Gabapentin 1 tablet p.o. 3 times per day. 8. Lorazepam 0.5 mg p.o. every 4 hours p.r.n.. cc: Lee Robertson MD
== END 2018-07-11 19:20 | disposition home or self-care (01) | DRG 951 ==
LOC: SUPCPDRO → ED 13:41 → 3N 06-25 18:19 → SUPCPDRO 06-25 18:19 → SUATTDRO 06-25 18:19
PROVIDERS: ATTEND Internal Medicine
CPT/HCPCS: 71010; 71045; 80053; 80101; 80301; 80307; 80320; 80324; 80345; 80346; 80353; 80358; 80361; 80365; 82055; 82948; 83735; 83992; 84443; 84484; 85025; 93005; 94640; 94760; 94761; 94799; 96361; 96374; 99285; A9270; C1751; G0431; G0434; G0479; G0480; G6040; J1885; J7030; XXXXX